=== PATIENT | female | born 1950 | race Caucasian/White ===

== ENCOUNTER 2017-03-31 16:41 | Inpatient (IN) | payer BC ==
[2017-03-31] MEDS ORDERED: Sodium Chloride 0.9% 5 ML Syringe FLUSH PRN (16:57)
[2017-03-31] MEDS ORDERED: diphenhydrAMINE 25 MG Cap PO PRN (19:38)
[2017-03-31] MEDS: Acetaminophen 500 MG Tab PO PRN (21:31)
[2017-04-01] MEDS ORDERED: Nicotine 7 MG/24 Hr Patch TRDERM PRN (06:00)
[2017-04-01 07:59] LABS: CHLORIDE,CL 95 mmol/L (98-115); SODIUM,NA 133 mmol/L (136-145)
--- NOTE | 2017-04-01 08:50 | PCM.PN ---
- General Info Date of Service: 04/01/17 Subjective Update: Ms. Parra reports that her elbow pain, swelling, and warmth is improved this morning. Has been attempting to offload any pressure on the right elbow. Denies fever, chills, appetite change, shortness of breath, wheezing, cough, abdominal pain, nausea, or other concerns. No nursing concerns. - Patient Data Vitals - Most Recent: Last Vital Signs Temp 36.7 C 04/01/17 06:51 Pulse 87 04/01/17 06:51 Resp 16 04/01/17 06:51 BP 161/97 H 04/01/17 06:51 Pulse Ox 90 L 04/01/17 06:51 Weight - Most Recent: 58.786 kg I&O - Last 24 Hours: Intake & Output 03/31/17 04/01/17 04/01/17 22:59 06:59 14:59 Intake Total 435 100 Output Total 350 400 Balance 85 -300 Lab Results Last 24 Hours: Laboratory Results - last 24 hr 04/01/17 04/01/17 Range/Units 07:25 07:25 WBC 6.5 (5.0-10.0) 10^3/uL RBC 3.80 (3.80-5.50) 10^6/uL Hgb 12.4 (12.0-16.0) g/dL Hct 38.2 (37.0-47.0) % MCV 100.7 H (82.0-92.0) fL MCH 32.7 H (27.0-31.0) pg MCHC 32.5 (32.0-36.0) g/dL RDW 12.0 (11.5-14.5) % Plt Count 447 H (150-300) 10^3/uL MPV 6.1 L (7.4-10.4) fL Neut % (Auto) 61.7 (50.0-70.0) % Lymph % (Auto) 21.2 (20.0-40.0) % [place] % (Auto) 14.4 H (2.0-8.0) % Eos % (Auto) 2.0 (1.0-3.0) % Baso % (Auto) 0.7 (0.0-1.0) % Neut # (Auto) 4.1 (2.5-7.0) 10^3/uL Lymph # (Auto) 1.4 (1.0-4.0) 10^3/uL [place] # (Auto) 0.9 H (0.1-0.8) 10^3/uL Eos # (Auto) 0.1 (0.1-0.3) 10^3/uL Baso # (Auto) 0.0 (0.0-0.1) 10^3/uL ESR 26 H (0-20) mm/hr Sodium 133 L (136-145) mmol/L Potassium 3.9 (3.3-5.3) mmol/L Chloride 95 L (98-115) mmol/L Carbon Dioxide 31.8 (21.0-32.0) mmol/L BUN 4 L (6-25) mg/dL Creatinine 0.31 L (0.51-1.17) mg/dL Est Cr Clr Drug Dosing 131.69 mL/min Estimated GFR (MDRD) > 60 mL/min Glucose 104 (70-110) mg/dL Calcium 8.8 (8.7-10.3) mg/dL Med Orders - Current: Current Medications Acetaminophen (Tylenol Extra Strength) 1,000 mg PO Q6H PRN PRN Reason: Pain Last Admin: 03/31/17 21:31 Dose: 1,000 mg Diphenhydramine HCl (Benadryl) 25 mg PO QID PRN PRN Reason: Allergies Vancomycin HCl 1 gm/ Sodium (Chloride) 250 mls @ 166.667 mls/hr IV Q12H [facility] Last Admin: 04/01/17 06:20 Dose: 166.667 mls/hr Ketorolac Tromethamine (Toradol) 30 mg IVPUSH Q8H PRN PRN Reason: Pain (moderate 4-6) Stop: 04/05/17 19:09 Moexipril HCl (Univasc) 15 mg PO DAILY [facility] Nicotine (Habitrol) 7 mg TRDERM DAILY PRN PRN Reason: Other Sodium Chloride (Syrex Flush) 5 ml FLUSH Q8HR PRN PRN Reason: Keep Vein Open Last Admin: 03/31/17 21:27 Dose: 5 ml Vancomycin HCl (Pharmacy To Dose - Vancomycin) 1 dose .XX ASDIRECTED [facility] Discontinued Medications Hydrochlorothiazide (Hydrochlorothiazide) 25 mg PO DAILY [facility] - Exam Physical Findings Comments:: GENERAL: Well-appearing adult female lying in hospital bed in no acute distress. HEENT: Normocephalic, atraumatic. Conjunctiva clear. Mucous membranes moist. NECK: Supple, no masses. CV: Regular rate and rhythm, no murmurs, rubs, or gallops. 2+ radial pulses. PULMONARY: Normal effort, clear to auscultation bilaterally, scattered faint wheezes, no rales or rhonchi. ABDOMEN: Positive bowel sounds, soft, nontender, nondistended. EXTREMITIES: No pedal edema. MUSCULOSKELETAL: R elbow with interval improvement in edema, redness, and warmth. Mild tenderness to palpation overlying effusion, but no bony tenderness to palpation. NEUROLOGICAL: No obvious deficits. PSYCHIATRIC: Alert, interactive, appropriate affect. - Problem List Review Problem List Initiated/Reviewed/Updated: Yes - My Orders Last 24 Hours: My Active Orders 03/31/17 16:44 Patient Status [ADT] Routine 03/31/17 16:57 Oxygen Therapy [RC] Up ad Deisy [RC] ASDIRECTED Vital Signs [RC] 0700,1500,2300 Sodium Chloride 0.9% [Syrex Flush] 5 ml FLUSH Q8HR PRN Blood Culture x2 Reflex Set [OM.PC] Stat Saline Lock Insert [OM.PC] Routine Resuscitation Status Routine 03/31/17 17:02 CULTURE BLOOD [BC] Stat CULTURE BLOOD [BC] Stat 03/31/17 17:15 Vancomycin Pharmacy to Dose [Pharmacy to Dose - Vancomycin] 1 dose .XX ASDIRECTED 03/31/17 18:30 Vancomycin 1 gm Sodium Chloride 0.9% [Normal Saline] 250 ml IV Q12H 03/31/17 19:08 Acetaminophen [Tylenol Extra Strength] 1,000 mg PO Q6H PRN 03/31/17 19:09 Ketorolac [Toradol] 30 mg IVPUSH Q8H PRN 03/31/17 19:38 diphenhydrAMINE [Benadryl] 25 mg PO QID PRN 03/31/17 Dinner Regular Diet [DIET] 04/01/17 06:00 Nicotine [Habitrol] 7 mg TRDERM DAILY PRN 04/01/17 08:48 FOLATE [REF] Routine VITAMIN B12 [REF] Routine 04/01/17 09:00 Moexipril [Univasc] 15 mg PO DAILY 04/02/17 05:11 BASIC METABOLIC PANEL,BMP [CHEM] AM CBC WITH AUTO DIFF [HEME] AM - Assessment Assessment:: 66yoF with admitted 03/31/17 for acute right elbow erythema consistent with olecranon septic arthritis and overlying cellulitis. # R elbow erythema: Interval improvement since aspiration yesterday and initiation of IV antibiotics. Crystals negative, so not consistent with gout. Gram stain and culture pending. Continue vancomycin for MRSA coverage. Continue ketorolac and acetaminophen as needed for pain control. Recheck CBC and ESR tomorrow. # HTN: BPs controlled. Home medications of HCTZ/moexepril. Holding HCTZ, as below. Monitor closely # Hyponatremia/hypochloremia: Improved since admission labs. Likely secondary to HCTZ, which was held today. Recheck BMP tomorrow. # Macrocytosis: Mild microcytosis with MCV 101. Ordered B12 and folate to further assess. # Tobacco dependence: Precontemplative stage of change and highly considering not restarting after leaving the hospital, which I highly encouraged. Nicotine patch prn. Hospitalization details: # FEN: No IVF. Electrolytes as above; recheck tomorrow. Regular diet. # PPX: Low risk for DVT=Ambulate and SCDs while in bed. # Code status: Full. # Emergency contact: . # Disposition: Continue inpatient status. Anticipate discharge in the next 1-2 days pending culture results and ability to transition to oral antibiotics.
[2017-04-01] MEDS: Acetaminophen 500 MG Tab PO PRN ×2 (08:57→18:06)
[2017-04-01] MEDS ORDERED: Hydrochlorothiazide 25 MG Tab PO SCH (09:00)
[2017-04-01] MEDS: Sodium Chloride 0.9% 100 ML IV SCH (18:05)
[2017-04-01] MEDS: Ketorolac 30 MG/ML SDV IVPUSH PRN (20:52)
[2017-04-02 07:24] LABS: CHLORIDE,CL 100 mmol/L (98-115); SODIUM,NA 137 mmol/L (136-145)
[2017-04-02] MEDS: Acetaminophen 500 MG Tab PO PRN ×2 (08:57→15:31)
--- NOTE | 2017-04-02 12:37 | PCM.PN ---
- General Info Date of Service: 04/02/17 Subjective Update: Ms. Parra reports that her elbow pain and swelling is stable this morning. Continuing to have some associated warmth. Has been trying to offload any pressure on the right elbow. Admits to some mild congestion that she usually take Mucinex for at home. Denies fever, chills, sore throat, shortness of breath, wheezing, cough, nausea , or other concerns. No nursing concerns. - Patient Data Vitals - Most Recent: Last Vital Signs Temp 36.5 C 04/02/17 06:11 Pulse 84 04/02/17 06:11 Resp 16 04/02/17 06:11 BP 149/94 H 04/02/17 08:58 Pulse Ox 92 L 04/02/17 06:25 Weight - Most Recent: 58.786 kg I&O - Last 24 Hours: Intake & Output 04/01/17 04/02/17 04/02/17 22:59 06:59 14:59 Intake Total 420 150 Output Total 300 250 Balance 120 -100 Lab Results Last 24 Hours: Laboratory Results - last 24 hr 04/01/17 04/01/17 04/02/17 Range/Units 07:25 07:25 06:45 WBC (5.0-10.0) 10^3/uL RBC (3.80-5.50) 10^6/uL Hgb (12.0-16.0) g/dL Hct (37.0-47.0) % MCV (82.0-92.0) fL MCH (27.0-31.0) pg MCHC (32.0-36.0) g/dL RDW (11.5-14.5) % Plt Count (150-300) 10^3/uL MPV (7.4-10.4) fL Neut % (Auto) (50.0-70.0) % Lymph % (Auto) (20.0-40.0) % [place] % (Auto) (2.0-8.0) % Eos % (Auto) (1.0-3.0) % Baso % (Auto) (0.0-1.0) % Neut # (Auto) (2.5-7.0) 10^3/uL Lymph # (Auto) (1.0-4.0) 10^3/uL [place] # (Auto) (0.1-0.8) 10^3/uL Eos # (Auto) (0.1-0.3) 10^3/uL Baso # (Auto) (0.0-0.1) 10^3/uL Sodium (136-145) mmol/L Potassium (3.3-5.3) mmol/L Chloride (98-115) mmol/L Carbon Dioxide (21.0-32.0) mmol/L BUN (6-25) mg/dL Creatinine (0.51-1.17) mg/dL Est Cr Clr Drug Dosing mL/min Estimated GFR (MDRD) mL/min Glucose (70-110) mg/dL Calcium (8.7-10.3) mg/dL Vitamin B12 182 (180-914) pg/mL Folate 14.0 ng/mL Vancomycin Trough 7.7 L (10-20) ug/mL 04/02/17 04/02/17 Range/Units 06:45 06:45 WBC 7.0 (5.0-10.0) 10^3/uL RBC 3.85 (3.80-5.50) 10^6/uL Hgb 12.4 (12.0-16.0) g/dL Hct 38.9 (37.0-47.0) % MCV 101.2 H (82.0-92.0) fL MCH 32.2 H (27.0-31.0) pg MCHC 31.9 L (32.0-36.0) g/dL RDW 11.8 (11.5-14.5) % Plt Count 440 H (150-300) 10^3/uL MPV 6.2 L (7.4-10.4) fL Neut % (Auto) 68.4 (50.0-70.0) % Lymph % (Auto) 16.0 L (20.0-40.0) % [place] % (Auto) 12.6 H (2.0-8.0) % Eos % (Auto) 2.6 (1.0-3.0) % Baso % (Auto) 0.4 (0.0-1.0) % Neut # (Auto) 4.8 (2.5-7.0) 10^3/uL Lymph # (Auto) 1.1 (1.0-4.0) 10^3/uL [place] # (Auto) 0.9 H (0.1-0.8) 10^3/uL Eos # (Auto) 0.2 (0.1-0.3) 10^3/uL Baso # (Auto) 0.0 (0.0-0.1) 10^3/uL Sodium 137 (136-145) mmol/L Potassium 3.7 (3.3-5.3) mmol/L Chloride 100 (98-115) mmol/L Carbon Dioxide 28.8 (21.0-32.0) mmol/L BUN 5 L (6-25) mg/dL Creatinine 0.27 L (0.51-1.17) mg/dL Est Cr Clr Drug Dosing 151.20 mL/min Estimated GFR (MDRD) > 60 mL/min Glucose 106 (70-110) mg/dL Calcium 8.8 (8.7-10.3) mg/dL Vitamin B12 (180-914) pg/mL Folate ng/mL Vancomycin Trough (10-20) ug/mL Med Orders - Current: Current Medications Acetaminophen (Tylenol Extra Strength) 1,000 mg PO Q6H PRN PRN Reason: Pain Last Admin: 04/02/17 08:57 Dose: 1,000 mg Diphenhydramine HCl (Benadryl) 25 mg PO QID PRN PRN Reason: Allergies Sodium Chloride (Normal Saline) 100 mls @ 20 mls/hr IV DAILY@1800 [facility] Last Admin: 04/01/17 18:05 Dose: 20 mls/hr Vancomycin HCl 1.25 gm/ Sodium (Chloride) 250 mls @ 166.667 mls/hr IV Q12H [facility] Last Admin: 04/02/17 09:10 Dose: 166.667 mls/hr Ketorolac Tromethamine (Toradol) 30 mg IVPUSH Q8H PRN PRN Reason: Pain (moderate 4-6) Stop: 04/05/17 19:09 Last Admin: 04/01/17 20:52 Dose: 30 mg Moexipril HCl (Univasc) 15 mg PO DAILY [facility] Last Admin: 04/02/17 08:58 Dose: 15 mg Nicotine (Habitrol) 7 mg TRDERM DAILY PRN PRN Reason: Other Sodium Chloride (Syrex Flush) 5 ml FLUSH Q8HR PRN PRN Reason: Keep Vein Open Last Admin: 03/31/17 21:27 Dose: 5 ml Vancomycin HCl (Pharmacy To Dose - Vancomycin) 1 dose .XX ASDIRECTED [facility] Discontinued Medications Hydrochlorothiazide (Hydrochlorothiazide) 25 mg PO DAILY [facility] Vancomycin HCl 1 gm/ Sodium (Chloride) 250 mls @ 166.667 mls/hr IV Q12H [facility] Last Admin: 04/01/17 06:20 Dose: 166.667 mls/hr Vancomycin HCl 1 gm/ Sodium (Chloride) 270 mls @ 180 mls/hr IV Q12H [facility] Last Admin: 04/02/17 08:10 Dose: Not Given - Exam Physical Findings Comments:: GENERAL: Well-appearing adult female lying in hospital bed in no acute distress. HEENT: Normocephalic, atraumatic. Conjunctiva clear. Mucous membranes moist. NECK: Supple, no masses. CV: Regular rate and rhythm, no murmurs, rubs, or gallops. 2+ radial pulses. PULMONARY: Normal effort, clear to auscultation bilaterally, scattered faint wheezes, no rales or rhonchi. EXTREMITIES: No pedal edema. MUSCULOSKELETAL: R elbow with ongoing edema, overlying redness, and mild warmth about stable from yesterday, but with interval improvement since admission. Mild tenderness to palpation overlying effusion, but no bony tenderness to palpation. NEUROLOGICAL: No obvious deficits. PSYCHIATRIC: Alert, interactive, appropriate affect. - Problem List Review Problem List Initiated/Reviewed/Updated: Yes - My Orders Last 24 Hours: My Active Orders 04/01/17 18:00 Sodium Chloride 0.9% [Normal Saline] 100 ml IV DAILY@1800 04/02/17 08:00 Vancomycin 1.25 gm Sodium Chloride 0.9% [Normal Saline] 250 ml IV Q12H - Assessment Assessment:: 66yoF with admitted 03/31/17 for acute right elbow erythema consistent with olecranon septic arthritis and overlying cellulitis. # R olecranon septic arthritis/cellulitis: Initial improvement following aspiration and initiation of IV antibiotics, with stability in the last 24 hours , but with ongoing erythema. Crystals negative, so not consistent with gout. Gram stain and culture with Staph. aureus with sensitivities pending. Continue vancomycin for MRSA coverage with plan to change to oral regimen based on sensitivites tomorrow. Continue ketorolac and acetaminophen as needed for pain control. Consider repeat aspiration tomorrow if palpable fluid still present. # HTN: BPs elevated since stopping HCTZ due to hyponatremia. Increase moexepril to 30mg daily. Plan for outpatient follow-up of BP and electrolytes while awaiting full effect of increased dose. # Hyponatremia/hypochloremia: Resolved since stopping HCTZ. # B12 deficiency: Mild microcytosis with MCV 101. Folate normal. B12 mildly low , so will start oral replacement. # Tobacco dependence: Precontemplative stage of change and highly considering not restarting after leaving the hospital, which I highly encouraged. Nicotine patch prn. Hospitalization details: # FEN: No IVF. Electrolytes normal. Regular diet. # PPX: Low risk for DVT=Ambulate and SCDs while in bed. # Code status: Full. # Emergency contact: . # Disposition: Continue inpatient status. Anticipate discharge tomorrow pending culture results and ability to transition to oral antibiotics.
[2017-04-02] MEDS ORDERED: guaiFENesin 600 MG Tab.ER PO PRN (19:14)
[2017-04-02] MEDS: Ketorolac 30 MG/ML SDV IVPUSH PRN (20:11)
[2017-04-02] MEDS: Sodium Chloride 0.9% 100 ML IV SCH (20:19)
[2017-04-03 06:24] VITALS: BP 163/87
[2017-04-03] MEDS: Sodium Chloride 0.9% 100 ML IV SCH (08:21)
[2017-04-03] MEDS ORDERED: Cyanocobalamin (Vitamin B12) 500 MCG Tab PO SCH (09:00)
--- NOTE | 2017-04-04 00:06 | PCM.DCSUM1 ---
Discharge Summary - Hospital Course Free Text/Narrative:: 66yoF with hx of HTN admitted 03/31/17 from clinic for acute right elbow erythema consistent with olecranon septic arthritis and overlying cellulitis. She had clinical improvement with IV antibiotics and culture grew gonzalez-sensitive Staph. aureus allowing for appropriate switch to oral antibiotic and discharge home. She will follow-up in 4 days. Follow-up items underlined below in problem- based assessment/plan: # R olecranon septic arthritis/cellulitis: Onset about 2 days prior to presentation and exam with extensive erythema for which aspiration of 15cc was performed and she was admitted for IV antibiotics given the extensive involvement. Improvement with IV vancomycin was noted. Crystals negative, so not consistent with gout. Gram stain and culture with gonzalez-sensitive Staph. aureus for which a 14-day course of amoxicillin was prescribed at discharge. Repeat aspiration was also performed on day of discharge to further assist with ongoing improvement and resolution; may consider again if recurrent. # HTN: Previously on HCTZ-moexepril. HCTZ stopped due to hyponatremia and BPs became elevated so increased moexepril to 30mg daily. Plan for outpatient follow -up of BP and electrolytes while awaiting full effect of increased dose. # Hyponatremia/hypochloremia: Initial labs with sodium 122 and prior history noting chronic history of hyponatremia. HCTZ stopped and sodium normalized. # B12 deficiency: Initial labs with mild microcytosis with MCV 101. Folate normal. B12 mildly low, so started oral replacement. # Tobacco dependence: Precontemplative stage of change and highly considering not restarting after leaving the hospital, which I highly encouraged. - Discharge Data Discharge Date: 04/03/17 Discharge Disposition: Home, Self-Care 01 Condition: Good - Patient Instructions Diet: Usual Diet as Tolerated Activity: Apply Ice, As Tolerated Showering/Bathing: May Shower Wound/Incision Care: Keep Operative Site/Wound Site Clean and Dry Notify Provider of: Fever, Increased Pain, Swelling and Redness, Drainage - Discharge Plan Prescriptions/Med Rec: Amoxicillin 500 mg PO TID 14 Days #42 capsule Cyanocobalamin (Vitamin B12) [Vitamin B12] 500 mcg PO DAILY #30 tablet Moexipril [Univasc] 30 mg PO DAILY #60 tablet Home Medications: Home Meds diphenhydrAMINE [Benadryl] 25 mg PO QID PRN 03/31/17 [History] Amoxicillin 500 mg PO TID 14 Days #42 capsule 04/03/17 [Rx] Cyanocobalamin (Vitamin B12) [Vitamin B12] 500 mcg PO DAILY #30 tablet 04/03/17 [Rx] Moexipril [Univasc] 30 mg PO DAILY #60 tablet 04/03/17 [Rx] Referrals: Michelle Hooks MD [Physician] - 04/07/17 ([facility]) - General Info Subjective Update: Ms. Parra reports that her elbow pain and swelling is stable this morning. She has had improved warmth and redness Has been trying to offload any pressure on the right elbow. Denies fever, chills, sore throat, shortness of breath, wheezing, cough, nausea , or other concerns. No nursing concerns. - Patient Data Vitals - Most Recent: Last Vital Signs Temp 36.8 C 04/03/17 06:23 Pulse 93 04/03/17 06:23 Resp 20 04/03/17 06:23 BP 163/87 H 04/03/17 08:27 Pulse Ox 95 04/03/17 08:30 Weight - Most Recent: 58.786 kg I&O - Last 24 hours: Intake & Output 04/03/17 04/03/17 04/04/17 14:59 22:59 06:59 Intake Total 305 Output Total 10 Balance 295 Med Orders - Current: Current Medications Discontinued Medications Acetaminophen (Tylenol Extra Strength) 1,000 mg PO Q6H PRN PRN Reason: Pain Last Admin: 04/02/17 15:31 Dose: 1,000 mg Cyanocobalamin (Vitamin B12) 500 mcg PO DAILY [facility] Last Admin: 04/03/17 08:27 Dose: 500 mcg Diphenhydramine HCl (Benadryl) 25 mg PO QID PRN PRN Reason: Allergies Guaifenesin (Mucinex) 600 mg PO TID PRN PRN Reason: Congestion Last Admin: 04/02/17 20:09 Dose: 600 mg Hydrochlorothiazide (Hydrochlorothiazide) 25 mg PO DAILY [facility] Vancomycin HCl 1 gm/ Sodium (Chloride) 250 mls @ 166.667 mls/hr IV Q12H [facility] Last Admin: 04/01/17 06:20 Dose: 166.667 mls/hr Sodium Chloride (Normal Saline) 100 mls @ 20 mls/hr IV DAILY@1800 [facility] Last Admin: 04/03/17 08:21 Dose: 20 mls/hr Vancomycin HCl 1 gm/ Sodium (Chloride) 270 mls @ 180 mls/hr IV Q12H [facility] Last Admin: 04/02/17 08:10 Dose: Not Given Vancomycin HCl 1.25 gm/ Sodium (Chloride) 250 mls @ 166.667 mls/hr IV Q12H [facility] Last Admin: 04/03/17 08:18 Dose: 166.667 mls/hr Ketorolac Tromethamine (Toradol) 30 mg IVPUSH Q8H PRN PRN Reason: Pain (moderate 4-6) Stop: 04/05/17 19:09 Last Admin: 04/02/17 20:11 Dose: 30 mg Moexipril HCl (Univasc) 15 mg PO DAILY [facility] Last Admin: 04/02/17 08:58 Dose: 15 mg Moexipril HCl (Univasc) 30 mg PO DAILY [facility] Last Admin: 04/03/17 08:27 Dose: 30 mg Nicotine (Habitrol) 7 mg TRDERM DAILY PRN PRN Reason: Other Sodium Chloride (Syrex Flush) 5 ml FLUSH Q8HR PRN PRN Reason: Keep Vein Open Last Admin: 03/31/17 21:27 Dose: 5 ml Vancomycin HCl (Pharmacy To Dose - Vancomycin) 1 dose .XX ASDIRECTED [facility] - Exam Physical Findings Comments:: GENERAL: Well-appearing adult female sitting on hospital bed in no acute distress. HEENT: Normocephalic, atraumatic. Conjunctiva clear. Mucous membranes moist. NECK: Supple, no masses. CV: Regular rate and rhythm, no murmurs, rubs, or gallops. 2+ radial pulses. PULMONARY: Normal effort, clear to auscultation bilaterally, scattered faint wheezes, no rales or rhonchi. EXTREMITIES: No pedal edema. MUSCULOSKELETAL: R elbow with ongoing edema and overlying redness, but without warmth slightly improved from yesterday and with excellent interval improvement since admission. Mild tenderness to palpation overlying effusion, but no bony tenderness to palpation. NEUROLOGICAL: No obvious deficits. PSYCHIATRIC: Alert, interactive, appropriate affect. *Q Meaningful Use (DIS) - VTE *Q VTE Criteria *Q: - Stroke *Q Stroke Criteria *Q: - AMI *Q AMI Criteria *Q:
--- NOTE | 2017-04-06 23:28 | PCM.PRNOTE ---
- Free Text/Narrative Note: PROCEDURE PERFORMED: Right olecranon bursa aspiration INDICATIONS FOR PROCEDURE: Right olecranon bursitis CONSENT: Informed consent was obtained prior to the procedure after discussion of the risks (infection, bleeding, pain), benefits and alternatives and expected outcomes were discussed with the patient. Verbal consent given and consent form signed. PROCEDURAL PAUSE: Completed DESCRIPTION OF PROCEDURE: The patient was placed in a right lateral position with elbow resting on side. Area was cleansed and prepped using chlorhexidine swab x3 and sterile field created. A 27-gauge needle was used to inject 2cc(s) of 1% lidocaine into the area overlying the olecranon bursa. Then, an 18-gauge needle was directed into the area and 10cc of denisa-colored fluid aspirated. Area was cleansed and dressed with a bandage and pressure dressing. No complications. EBL <1mL.
== END 2017-04-03 13:50 | disposition home or self-care (01) | DRG 344 ==
LOC: KA.MS 16:44
PROVIDERS: ADMIT Family Medicine; ATTEND Family Medicine
PROC: 0R9L3ZX Drainage of Right Elbow Joint, Percutaneous Approach, Diagnostic (ICD-10-PCS; principal; 2017-03-31)
DX: M00.021 Staphylococcal arthritis, right elbow (principal); B95.62 Methicillin resistant Staphylococcus aureus infection as the cause of diseases classified elsewhere; L03.113 Cellulitis of right upper limb; I10 Essential (primary) hypertension; E87.1 Hypo-osmolality and hyponatremia; E87.8 Other disorders of electrolyte and fluid balance, not elsewhere classified; E53.8 Deficiency of other specified B group vitamins; F17.200 Nicotine dependence, unspecified, uncomplicated; R09.81 Nasal congestion; D75.89 Other specified diseases of blood and blood-forming organs; Z79.899 Other long term (current) drug therapy
CPT/HCPCS: 36415; 80048; 80202; 82607; 82746; 85025; 85651; 87040; A9270-GY; J1885; J3370; J7050

== ENCOUNTER 2018-11-04 11:20 | Inpatient (IN) | payer MEDICARE, OTHER ==
[2018-11-04] MEDS ORDERED: Sodium Chloride 0.9% 1,000 ML IV SCH (12:30)
--- NOTE | 2018-11-04 13:07 | CR ---
[id number] RAD/RAD Chest PA And Lateral EXAM: FRONTAL AND LATERAL CHEST INDICATION: Fever and cough. COMPARISON: None. DISCUSSION: There is a moderate nonspecific right greater than left base opacities obscuring the right and left heart borders. Mild bibasilar infiltrates and/or atelectasis. Chest CT with contrast is suggested for further characterization of these findings. Hyperaeration is compatible chronic obstructive pulmonary disease. Mild to moderate convex right lower thoracic curvature. Chronic left rib fractures. Prior vertebroplasty at the thoracolumbar junction. Heart size is obscured. There is borderline central vascular congestion. IMPRESSION: 1. Left base opacities may relate in part to infiltrates and atelectasis, but chest CT with contrast is suggested to further evaluate for other pathology in the right lung base. 2. Borderline central vascular congestion. Russ Guzman MD 11/04/18 [id number] Thank you for allowing us to participate in the care of your patient.
[2018-11-04] MEDS: Sodium Chloride 0.9% 1,000 ML IV ONE ×2 (13:15→14:33)
[2018-11-04 13:22] LABS: ANION GAP 13.8 mmol/L (5-15); SODIUM,NA 129 mmol/L (136-145)
[2018-11-04 13:28] LABS: CHLORIDE,CL 88 mmol/L (98-115)
[2018-11-04] MEDS ORDERED: Sodium Chloride 0.9% 1,000 ML IV ONE (13:49)
[2018-11-04] MEDS ORDERED: Iopamidol 755 Mg/ML 75 ML Bottle IVPUSH ONE (16:27)
[2018-11-04] MEDS ORDERED: Sodium Chloride 0.9% 50 ML IV ONE (16:27)
[2018-11-04] MEDS ORDERED: Albuterol/Ipratropium 3.0-0.5 MG/3 ML Neb Soln NEB PRN (16:50)
[2018-11-04] MEDS ORDERED: Dextrose 5% in Water with KCl 1,000 ML IV SCH (17:30)
[2018-11-04] MEDS: cefTRIAXone 2 GM Vial IVPUSH SCH (17:36)
[2018-11-04] MEDS: Sodium Chloride 0.9% 10 ML Syringe FLUSH PRN (17:37)
[2018-11-04] MEDS ORDERED: Azithromycin 500 MG in Sodium Chloride 0.9% 250 ML IV SCH (18:00)
--- NOTE | 2018-11-04 18:04 | CT ---
[id number] CT/CT Chest W IV EXAM: CT Chest W IV CLINICAL DATA: COUGH, FEVER. COMPARISON: Radiograph from today. FINDINGS: LUNGS: Parenchymal emphysema, apical predominant with bulla formation in the right apex. Scattered pleural/parenchymal scarring. No suspicious nodularity. Negative for pneumonia, effusion, edema, or pneumothorax. HEART AND GREAT VESSELS: Heart is normal in size. No pericardial effusion. Thoracic aorta atherosclerosis. No aneurysm. Mild central vascular congestion, nonspecific in etiology. MEDIASTINUM AND LYMPHATICS: No mediastinal or hilar lymphadenopathy. UPPER ABDOMINAL ORGANS: Anterior diaphragmatic hernia containing a loop of colon, accounting for opacity anteriorly on lateral chest radiograph. Unremarkable. BONES: Advanced thoracic dextroconvexity. Chronic bilateral rib fractures. IMPRESSION: Negative for pneumonia or other acute findings in the chest. Multiple chronic findings are described above. Maurizio Garner MD 11/04/18 [id number] Thank you for allowing us to participate in the care of your patient.
[2018-11-05] MEDS: NS + KCl 20mEq/L 1,000 ML IV SCH ×3 (00:43→18:54)
[2018-11-05] MEDS: Acetaminophen 325 MG Tab PO PRN (00:58)
[2018-11-05] MEDS: Melatonin 3 MG Tab PO PRN ×2 (01:11→21:54)
[2018-11-05 09:23] LABS: ANION GAP 10.5 mmol/L (5-15); CHLORIDE,CL 98 mmol/L (98-115); SODIUM,NA 139 mmol/L (136-145)
[2018-11-05] MEDS ORDERED: Moexipril 7.5 MG Tab PO SCH (11:15)
[2018-11-05] MEDS ORDERED: Potassium Bicarbonate/Potassium Chloride 25 MEQ Tab.Eff PO SCH ×2 (11:15→16:00)
--- NOTE | 2018-11-05 11:19 | PCM.PN ---
- General Info Date of Service: 11/05/18 Functional Status: Reports: Pain Controlled, Tolerating Diet, Urinating. Denies : Ambulating, New Symptoms - Review of Systems General: Reports: Fatigue, Night Sweats. Denies: Fever, Malaise, Chills HEENT: Reports: No Symptoms Pulmonary: Reports: Shortness of Breath, Cough. Denies: Wheezing Cardiovascular: Reports: Edema (Slight edema right lower extremity ) Gastrointestinal: Reports: No Symptoms Genitourinary: Denies: Dysuria Musculoskeletal: Reports: No Symptoms Skin: Reports: Dryness Neurological: Denies: Confusion Psychiatric: Denies: Confusion, Agitation - Patient Data Vitals - Most Recent: Last Vital Signs Temp 98.3 F 11/05/18 07:00 Pulse 91 11/05/18 07:00 Resp 20 11/05/18 07:00 BP 126/79 11/05/18 07:00 Pulse Ox 92 L 11/05/18 07:00 Weight - Most Recent: 126 lb 5 oz I&O - Last 24 Hours: Intake & Output 11/04/18 11/05/18 11/05/18 22:59 06:59 14:59 Intake Total 1586 1387 Output Total 300 400 Balance 1286 987 Lab Results Last 24 Hours: Laboratory Results - last 24 hr 11/04/18 11/04/18 11/04/18 Range/Units 12:30 12:30 12:30 WBC 22.97 H (5.00-10.00) 10^3/uL RBC 3.91 (3.80-5.50) 10^6/uL Hgb 13.6 (12.0-16.0) g/dL Hct 38.0 (37.0-47.0) % MCV 97.2 H D (82.0-92.0) fL MCH 34.8 H (27.0-31.0) pg MCHC 35.8 (32.0-36.0) g/dL RDW 12.9 (11.5-14.5) % Plt Count 331 (150-400) 10^3/uL MPV 9.0 (7.4-10.4) fL Immature Gran % (Auto) 1.0 (0.0-5.0) % Neut % (Auto) 87.0 H (50.0-70.0) % Lymph % (Auto) 4.1 L (20.0-40.0) % [place] % (Auto) 7.8 (2.0-8.0) % Eos % (Auto) 0.0 L (1.0-3.0) % Baso % (Auto) 0.1 (0.0-1.0) % Immature Gran # (Auto) 0.22 (0.00-0.50) 10^3/uL Neut # (Auto) 19.98 H (2.50-7.00) 10^3/uL Lymph # (Auto) 0.94 L (1.00-4.00) 10^3/uL [place] # (Auto) 1.80 H (0.10-0.80) 10^3/uL Eos # (Auto) 0.01 L (0.10-0.30) 10^3/uL Baso # (Auto) 0.02 (0.00-0.10) 10^3/uL Sodium 129 L (136-145) mmol/L Potassium 3.1 L (3.3-5.3) mmol/L Chloride 88 L* D (98-115) mmol/L Carbon Dioxide 30.3 (21.0-32.0) mmol/L Anion Gap 13.8 (5-15) mmol/L BUN 20 (6-25) mg/dL Creatinine 0.57 (0.51-1.17) mg/dL Est Cr Clr Drug Dosing TNP Estimated GFR (MDRD) > 60 mL/min Glucose 114 H (75 - 99) mg/dL Lactic Acid (0.4-2.0) mmol/L Calcium 8.4 L (8.7-10.3) mg/dL Total Bilirubin 0.7 (0.2-1.0) mg/dL AST 57 H (15-37) U/L ALT 63 (12-78) U/L Alkaline Phosphatase 201 H (46-116) IU/L Troponin I 0.07 (0.00-0.070) ng/mL C-Reactive Protein 29.6 H (0.0-0.9) mg/dL B-Natriuretic Peptide 159 H (0-100) pg/mL Total Protein 6.7 (6.4-8.2) g/dL Albumin 2.17 L (3.00-4.80) g/dL TSH, Ultra Sensitive 1.030 (0.340-4.820) uIU/mL Specimen Type Urine Color (YELLOW) Urine Appearance (CLEAR) Urine pH (5.0-9.0) Ur Specific [place] (1.005-1.030) Urine Protein (NEGATIVE) mg/dL Urine Glucose (UA) (NEGATIVE) mg/dL Urine Ketones (NEGATIVE) mg/dL Urine Occult Blood (NEGATIVE) Urine Nitrite (NEGATIVE) Urine Bilirubin (NEGATIVE) Urine Urobilinogen (0.2-1.0) E.U./dL Ur Leukocyte Esterase (NEGATIVE) Urine RBC (0-5) /HPF Urine WBC (0-5) /HPF Ur Epithelial Cells /LPF Amorphous Sediment (0/HPF) /HPF Urine Bacteria (NONE TO FEW) /HPF 11/04/18 11/04/18 11/05/18 Range/Units 12:30 15:40 08:55 WBC 21.34 H (5.00-10.00) 10^3/uL RBC 3.65 L (3.80-5.50) 10^6/uL Hgb 12.6 (12.0-16.0) g/dL Hct 36.0 L (37.0-47.0) % MCV 98.6 H (82.0-92.0) fL MCH 34.5 H (27.0-31.0) pg MCHC 35.0 (32.0-36.0) g/dL RDW 13.2 (11.5-14.5) % Plt Count 365 (150-400) 10^3/uL MPV 9.0 (7.4-10.4) fL Immature Gran % (Auto) 0.7 (0.0-5.0) % Neut % (Auto) 87.8 H (50.0-70.0) % Lymph % (Auto) 4.2 L (20.0-40.0) % [place] % (Auto) 7.3 (2.0-8.0) % Eos % (Auto) 0.0 L (1.0-3.0) % Baso % (Auto) 0.0 (0.0-1.0) % Immature Gran # (Auto) 0.15 (0.00-0.50) 10^3/uL Neut # (Auto) 18.71 H (2.50-7.00) 10^3/uL Lymph # (Auto) 0.90 L (1.00-4.00) 10^3/uL [place] # (Auto) 1.56 H (0.10-0.80) 10^3/uL Eos # (Auto) 0.01 L (0.10-0.30) 10^3/uL Baso # (Auto) 0.01 (0.00-0.10) 10^3/uL Sodium (136-145) mmol/L Potassium (3.3-5.3) mmol/L Chloride (98-115) mmol/L Carbon Dioxide (21.0-32.0) mmol/L Anion Gap (5-15) mmol/L BUN (6-25) mg/dL Creatinine (0.51-1.17) mg/dL Est Cr Clr Drug Dosing Estimated GFR (MDRD) mL/min Glucose (75 - 99) mg/dL Lactic Acid 1.4 (0.4-2.0) mmol/L Calcium (8.7-10.3) mg/dL Total Bilirubin (0.2-1.0) mg/dL AST (15-37) U/L ALT (12-78) U/L Alkaline Phosphatase (46-116) IU/L Troponin I (0.00-0.070) ng/mL C-Reactive Protein (0.0-0.9) mg/dL B-Natriuretic Peptide (0-100) pg/mL Total Protein (6.4-8.2) g/dL Albumin (3.00-4.80) g/dL TSH, Ultra Sensitive (0.340-4.820) uIU/mL Specimen Type . Urine Color Light yellow (YELLOW) Urine Appearance Clear (CLEAR) Urine pH 5.5 (5.0-9.0) Ur Specific [place] 1.010 (1.005-1.030) Urine Protein 30 H (NEGATIVE) mg/dL Urine Glucose (UA) Negative (NEGATIVE) mg/dL Urine Ketones Negative (NEGATIVE) mg/dL Urine Occult Blood Trace-intact H (NEGATIVE) Urine Nitrite Negative (NEGATIVE) Urine Bilirubin Negative (NEGATIVE) Urine Urobilinogen 0.2 (0.2-1.0) E.U./dL Ur Leukocyte Esterase Small H (NEGATIVE) Urine RBC 5-10 H (0-5) /HPF Urine WBC >100 H (0-5) /HPF Ur Epithelial Cells Many H /LPF Amorphous Sediment Few (0/HPF) /HPF Urine Bacteria Many H (NONE TO FEW) /HPF 11/05/18 Range/Units 08:55 WBC (5.00-10.00) 10^3/uL RBC (3.80-5.50) 10^6/uL Hgb (12.0-16.0) g/dL Hct (37.0-47.0) % MCV (82.0-92.0) fL MCH (27.0-31.0) pg MCHC (32.0-36.0) g/dL RDW (11.5-14.5) % Plt Count (150-400) 10^3/uL MPV (7.4-10.4) fL Immature Gran % (Auto) (0.0-5.0) % Neut % (Auto) (50.0-70.0) % Lymph % (Auto) (20.0-40.0) % [place] % (Auto) (2.0-8.0) % Eos % (Auto) (1.0-3.0) % Baso % (Auto) (0.0-1.0) % Immature Gran # (Auto) (0.00-0.50) 10^3/uL Neut # (Auto) (2.50-7.00) 10^3/uL Lymph # (Auto) (1.00-4.00) 10^3/uL [place] # (Auto) (0.10-0.80) 10^3/uL Eos # (Auto) (0.10-0.30) 10^3/uL Baso # (Auto) (0.00-0.10) 10^3/uL Sodium 139 D (136-145) mmol/L Potassium 2.9 L (3.3-5.3) mmol/L Chloride 98 (98-115) mmol/L Carbon Dioxide 33.4 H (21.0-32.0) mmol/L Anion Gap 10.5 (5-15) mmol/L BUN 8 (6-25) mg/dL Creatinine 0.39 L (0.51-1.17) mg/dL Est Cr Clr Drug Dosing 101.92 Estimated GFR (MDRD) > 60 mL/min Glucose 124 H (75 - 99) mg/dL Lactic Acid (0.4-2.0) mmol/L Calcium 8.3 L (8.7-10.3) mg/dL Total Bilirubin (0.2-1.0) mg/dL AST (15-37) U/L ALT (12-78) U/L Alkaline Phosphatase (46-116) IU/L Troponin I (0.00-0.070) ng/mL C-Reactive Protein (0.0-0.9) mg/dL B-Natriuretic Peptide (0-100) pg/mL Total Protein (6.4-8.2) g/dL Albumin (3.00-4.80) g/dL TSH, Ultra Sensitive (0.340-4.820) uIU/mL Specimen Type Urine Color (YELLOW) Urine Appearance (CLEAR) Urine pH (5.0-9.0) Ur Specific [place] (1.005-1.030) Urine Protein (NEGATIVE) mg/dL Urine Glucose (UA) (NEGATIVE) mg/dL Urine Ketones (NEGATIVE) mg/dL Urine Occult Blood (NEGATIVE) Urine Nitrite (NEGATIVE) Urine Bilirubin (NEGATIVE) Urine Urobilinogen (0.2-1.0) E.U./dL Ur Leukocyte Esterase (NEGATIVE) Urine RBC (0-5) /HPF Urine WBC (0-5) /HPF Ur Epithelial Cells /LPF Amorphous Sediment (0/HPF) /HPF Urine Bacteria (NONE TO FEW) /HPF Kailash Results Last 24 Hours: Microbiology 11/04/18 15:40 Urine Culture - Final Urine, Clean Catch 11/04/18 12:30 Anaerobic Blood Culture - Final Blood - Venous Med Orders - Current: Current Medications Acetaminophen (Tylenol) 650 mg PO Q4H PRN PRN Reason: Pain Last Admin: 11/05/18 00:58 Dose: 650 mg Albuterol/Ipratropium (Duoneb 3.0-0.5 Mg/3 Ml) 3 ml NEB Q4HRRT PRN PRN Reason: Shortness of Breath Last Admin: 11/05/18 10:32 Dose: 3 ml Ceftriaxone Sodium (Rocephin) 2 gm IVPUSH Q24H [facility] Last Admin: 11/04/18 17:36 Dose: 2 gm Potassium Chloride/Sodium Chloride (Normal Saline With 20 Meq Kcl) 1,000 mls @ 125 mls/hr IV ASDIRECTED [facility] Last Admin: 11/05/18 09:57 Dose: 125 mls/hr Melatonin (Melatonin) 3 mg PO BEDTIME PRN PRN Reason: Insomnia Last Admin: 11/05/18 01:11 Dose: 3 mg Sodium Chloride (Saline Flush) 10 ml FLUSH Q8HR PRN PRN Reason: keep vein open Last Admin: 11/04/18 17:37 Dose: 10 ml Discontinued Medications Sodium Chloride (Normal Saline) 1,000 mls @ 999 mls/hr IV ONETIME ONE Stop: 11/04/18 13:21 Last Admin: 11/04/18 14:33 Dose: Not Given Sodium Chloride (Normal Saline) 1,000 mls @ 125 mls/hr IV ASDIRECTED [facility] Last Admin: 11/04/18 14:23 Dose: 125 mls/hr Sodium Chloride (Normal Saline) 1,000 mls @ 999 mls/hr IV ONETIME ONE Stop: 11/04/18 14:49 Last Admin: 11/04/18 14:23 Dose: 999 mls/hr Sodium Chloride (Normal Saline) 50 mls @ 2.5 mls/sec IV ASDIRECTED ONE Stop: 11/04/18 16:28 Last Admin: 11/04/18 19:58 Dose: Not Given Azithromycin 500 mg/ Sodium (Chloride) 250 mls @ 250 mls/hr IV Q24H [facility] Last Admin: 11/04/18 18:05 Dose: 250 mls/hr Potassium Chloride/Dextrose (D5w With 20 Meq Kcl) 1,000 mls @ 125 mls/hr IV ASDIRECTED [facility] Iopamidol (Isovue-370 (76%)) 75 ml IVPUSH ONETIME ONE Stop: 11/04/18 16:28 Last Admin: 11/04/18 19:58 Dose: Not Given - Exam Quality Assessment: Supplemental Oxygen General: Alert, Oriented, Cooperative, No Acute Distress Neck: No JVD Lungs: Decreased Breath Sounds, Other (Tripod stance, purse lipped breathing) Cardiovascular: Regular Rate, Regular Rhythm GI/Abdominal Exam: Soft (Female) Exam: Deferred Back Exam: No: CVA Tenderness (L), CVA Tenderness (R) Extremities: Pedal Edema (Right lower extremity 1+) Peripheral Pulses: 2+: Radial (L), Radial (R) Skin: Dry Neurological: Normal Speech, Normal Tone, Sensation Intact Psy/Mental Status: Alert, Normal Affect, Normal Mood - Problem List Review Problem List Initiated/Reviewed/Updated: Yes - My Orders Last 24 Hours: My Active Orders 11/05/18 00:45 NS + KCl 20mEq/L [Normal Saline with 20 mEq KCl] 1,000 ml IV ASDIRECTED 11/05/18 00:46 Acetaminophen [Tylenol] 650 mg PO Q4H PRN 11/05/18 01:01 Melatonin 3 mg PO BEDTIME PRN - Plan Plan:: Brief history, (see H&P for full details) Lalitha is a 68-year-old who was admitted by Dr. Hooks from [facility]. She had presented with a five-day history of increasing weakness, fatigue, developing cough, dizziness, feverish feeling, and chills, SOB along with symptoms suggestive of a UTI she did have a strong urine odor. Review of Dr. Ángela altamirano's examination patient had positive signs of dehydration. She has history of hyponatremia, tobacco dependency, EtOH use along with hypertension. Although she has no formal diagnosis/staging of COPD she has been taking increasing dosages of albuterol/GISSELLE 4-5 times daily--up from 1-2 times daily. No No baseline formal spirometry on file. She was initially started on antibiotics as initial chest x-ray reading showed possibility of CAP however subsequent chest CT ruled out pulmonary pathology so antibiotics were descalated Pertinent workup Chest x-ray; left basal pace that he likely atelectasis with borderline central vascular congestion Chest CT; no acute findings Anaerobic BC positive for gram-negative rods UC, gram-negative rods, oxidase negative UA, [facility], leukocyte esterase, hematuria, cloudy in appearance Primary hospital problem Bacteremia,/UTI Hypokalemia Neutrophilia/Monocytosis Emphysema/COPD, clinical, non-staged Protein malnutrition Chronic hospital problems Hypertension, EtOH use disorder Tobacco dependency Chronic bilateral rib fractures Hx, vertebral plasty Disposition/plan --change to inpatient --continue Rocephin, --BC surveillance, --Assess baseline spirometry, --oxygen support if needed TKS 90-93% --baseline ABG today --Add MVI --Protein supplementation --assess pneumococcal/influenza vaccination status, --respiratory therapist consultation for tobacco cessation, --pharmacy consultation to review medications/Rx plan as I would like to start her on LABA/LAMA i.e Anoro Ellipta --Add DVT prophylaxis
[2018-11-05 11:50] LABS: BASE EXCESS ARTERIAL 5 mmol/L (-2-3); BICARBONATE,ARTERIAL 29.2 mmol/L (22-26); O2 DELIVERY DEVICE ROOM AIR; O2 SATURATION ARTERIAL 87 % (95-98); PCO2 ARTERIAL 45 mmHG (35-45); PO2 ARTERIAL 53 mmHG (80-105)
[2018-11-05] MEDS: Cyanocobalamin (Vitamin B12) 500 MCG Tab PO SCH (11:58)
[2018-11-05] MEDS: Multivitamins with Minerals/Iron/Folic Acid/Lycopene Tab PO SCH (11:58)
[2018-11-05] MEDS: Enoxaparin 40 MG/0.4 ML Syringe SUBCUT SCH (11:58)
[2018-11-05] MEDS ORDERED: Potassium Bicarbonate/Potassium Chloride 25 MEQ Tab.Eff PO ONE ×2 (12:00→16:00)
[2018-11-05] MEDS: cefTRIAXone 2 GM Vial IVPUSH SCH (16:26)
[2018-11-05] MEDS: Sodium Chloride 0.9% 10 ML Syringe FLUSH PRN (16:31)
[2018-11-05] MEDS ORDERED: Potassium Bicarbonate 25 MEQ Tab.EFF PO ONE (16:45)
[2018-11-06] MEDS: NS + KCl 20mEq/L 1,000 ML IV SCH (02:57)
[2018-11-06 07:53] LABS: ANION GAP 9.9 mmol/L (5-15); CHLORIDE,CL 101 mmol/L (98-115); SODIUM,NA 140 mmol/L (136-145)
[2018-11-06] MEDS: Cyanocobalamin (Vitamin B12) 500 MCG Tab PO SCH (08:28)
[2018-11-06] MEDS: Multivitamins with Minerals/Iron/Folic Acid/Lycopene Tab PO SCH (08:28)
[2018-11-06] MEDS ORDERED: MOEXIPRIL 15 MG PO SCH (09:00)
--- NOTE | 2018-11-06 11:06 | PCM.PN ---
- General Info Date of Service: 11/06/18 Functional Status: Reports: Pain Controlled, Urinating, New Symptoms (Weight gain however no fluid overload), Incentive Spirometry. Denies: Ambulating - Review of Systems General: Reports: Weakness. Denies: Fever HEENT: Reports: No Symptoms Pulmonary: Reports: Shortness of Breath, Cough. Denies: Sputum, Wheezing Cardiovascular: Reports: Dyspnea on Exertion, Edema (1+ right sided pitting edema) Gastrointestinal: Reports: No Symptoms Genitourinary: Reports: Frequency. Denies: Dysuria Musculoskeletal: Reports: No Symptoms Skin: Reports: Dryness Neurological: Denies: Confusion Psychiatric: Denies: Agitation - Patient Data Vitals - Most Recent: Last Vital Signs Temp 98.5 F 11/06/18 07:00 Pulse 94 11/06/18 07:00 Resp 20 11/06/18 07:00 BP 112/62 11/06/18 07:00 Pulse Ox 98 11/06/18 07:00 Weight - Most Recent: 135 lb 9.6 oz I&O - Last 24 Hours: Intake & Output 11/05/18 11/06/18 11/06/18 22:59 06:59 14:59 Intake Total 1374 1185 Output Total 600 500 Balance 774 685 Lab Results Last 24 Hours: Laboratory Results - last 24 hr 11/05/18 11/06/18 11/06/18 Range/Units 11:40 07:15 07:15 WBC 16.16 H (5.00-10.00) 10^3/uL RBC 3.09 L (3.80-5.50) 10^6/uL Hgb 10.8 L D (12.0-16.0) g/dL Hct 31.5 L (37.0-47.0) % MCV 101.9 H D (82.0-92.0) fL MCH 35.0 H (27.0-31.0) pg MCHC 34.3 (32.0-36.0) g/dL RDW 13.5 (11.5-14.5) % Plt Count 370 (150-400) 10^3/uL MPV 9.0 (7.4-10.4) fL Immature Gran % (Auto) 0.9 (0.0-5.0) % Neut % (Auto) 81.8 H (50.0-70.0) % Lymph % (Auto) 8.3 L (20.0-40.0) % [place] % (Auto) 8.8 H (2.0-8.0) % Eos % (Auto) 0.2 L (1.0-3.0) % Baso % (Auto) 0.0 (0.0-1.0) % Immature Gran # (Auto) 0.14 (0.00-0.50) 10^3/uL Neut # (Auto) 13.23 H (2.50-7.00) 10^3/uL Lymph # (Auto) 1.34 (1.00-4.00) 10^3/uL [place] # (Auto) 1.42 H (0.10-0.80) 10^3/uL Eos # (Auto) 0.03 L (0.10-0.30) 10^3/uL Baso # (Auto) 0.00 (0.00-0.10) 10^3/uL ABG pH 7.42 (7.35-7.45) ABG pCO2 45 (35-45) mmHG ABG pO2 53 L (80-105) mmHG ABG HCO3 29.2 H (22-26) mmol/L ABG Total CO2 31 H (23-27) mmol/L ABG O2 Saturation 87 L (95-98) % ABG Base Excess 5 H (-2-3) mmol/L O2 Delivery Device Room air Sodium 140 (136-145) mmol/L Potassium 3.8 (3.3-5.3) mmol/L Chloride 101 (98-115) mmol/L Carbon Dioxide 32.9 H (21.0-32.0) mmol/L Anion Gap 9.9 (5-15) mmol/L BUN 6 (6-25) mg/dL Creatinine 0.34 L (0.51-1.17) mg/dL Est Cr Clr Drug Dosing 116.91 mL/min Estimated GFR (MDRD) > 60 mL/min Glucose 101 H (75 - 99) mg/dL Calcium 8.0 L (8.7-10.3) mg/dL Total Bilirubin 0.3 (0.2-1.0) mg/dL AST 38 H (15-37) U/L ALT 55 (12-78) U/L Alkaline Phosphatase 202 H (46-116) IU/L Total Protein 5.7 L (6.4-8.2) g/dL Albumin 1.69 L (3.00-4.80) g/dL Kailash Results Last 24 Hours: Microbiology 11/04/18 12:40 Bacterial Identification - Preliminary Blood - Arm, Left Gram Negative Rods 11/04/18 12:30 Bacterial Identification - Preliminary Blood Gram Negative Rods 11/04/18 12:30 Aerobic Blood Culture - Final Blood - Venous Anaerobic Blood Culture - Final 11/04/18 12:40 Aerobic Blood Culture - Preliminary Blood - Venous - Lab Draw Anaerobic Blood Culture - Preliminary NO GROWTH AFTER 1 DAY 11/04/18 15:40 Urine Culture - Final Urine, Clean Catch Med Orders - Current: Current Medications Acetaminophen (Tylenol) 650 mg PO Q4H PRN PRN Reason: Pain Last Admin: 11/05/18 00:58 Dose: 650 mg Albuterol/Ipratropium (Duoneb 3.0-0.5 Mg/3 Ml) 3 ml NEB Q4HRRT PRN PRN Reason: Shortness of Breath Last Admin: 11/05/18 10:32 Dose: 3 ml Ceftriaxone Sodium (Rocephin) 2 gm IVPUSH Q24H [facility] Last Admin: 11/05/18 16:26 Dose: 2 gm Cyanocobalamin (Vitamin B12) 500 mcg PO DAILY [facility] Last Admin: 11/06/18 08:28 Dose: 500 mcg Enoxaparin Sodium (Lovenox) 40 mg SUBCUT Q24H [facility] Last Admin: 11/05/18 11:58 Dose: 40 mg Potassium Chloride/Sodium Chloride (Normal Saline With 20 Meq Kcl) 1,000 mls @ 125 mls/hr IV ASDIRECTED [facility] Last Admin: 11/06/18 02:57 Dose: 125 mls/hr Melatonin (Melatonin) 3 mg PO BEDTIME PRN PRN Reason: Insomnia Last Admin: 11/05/18 21:54 Dose: 3 mg Multivitamins/Minerals (Centrum) 1 tab PO DAILY [facility] Last Admin: 11/06/18 08:28 Dose: 1 tab Non-Formulary Medication - Moexipril 15mg 2 each PO DAILY [facility] Last Admin: 11/06/18 08:51 Dose: 2 each Sodium Chloride (Saline Flush) 10 ml FLUSH Q8HR PRN PRN Reason: keep vein open Last Admin: 11/05/18 16:31 Dose: 10 ml Discontinued Medications Sodium Chloride (Normal Saline) 1,000 mls @ 999 mls/hr IV ONETIME ONE Stop: 11/04/18 13:21 Last Admin: 11/04/18 14:33 Dose: Not Given Sodium Chloride (Normal Saline) 1,000 mls @ 125 mls/hr IV ASDIRECTED [facility] Last Admin: 11/04/18 14:23 Dose: 125 mls/hr Sodium Chloride (Normal Saline) 1,000 mls @ 999 mls/hr IV ONETIME ONE Stop: 11/04/18 14:49 Last Admin: 11/04/18 14:23 Dose: 999 mls/hr Sodium Chloride (Normal Saline) 50 mls @ 2.5 mls/sec IV ASDIRECTED ONE Stop: 11/04/18 16:28 Last Admin: 11/04/18 19:58 Dose: Not Given Azithromycin 500 mg/ Sodium (Chloride) 250 mls @ 250 mls/hr IV Q24H [facility] Last Admin: 11/04/18 18:05 Dose: 250 mls/hr Potassium Chloride/Dextrose (D5w With 20 Meq Kcl) 1,000 mls @ 125 mls/hr IV ASDIRECTED [facility] Iopamidol (Isovue-370 (76%)) 75 ml IVPUSH ONETIME ONE Stop: 11/04/18 16:28 Last Admin: 11/04/18 19:58 Dose: Not Given Moexipril HCl (Univasc) 30 mg PO DAILY [facility] Last Admin: 11/05/18 11:57 Dose: 30 mg Potassium Bicarb/Potassium Chloride (Potassium Chloride, Effervescent) 25 meq PO ONETIME ONE Stop: 11/05/18 12:01 Last Admin: 11/05/18 12:11 Dose: 25 meq Potassium Bicarbonate (Klor-Con Ef) 25 meq PO ONETIME ONE Stop: 11/05/18 16:46 Last Admin: 11/05/18 16:38 Dose: 25 meq - Exam Quality Assessment: Supplemental Oxygen, DVT Prophylaxis General: No Acute Distress Neck: No JVD Lungs: Decreased Breath Sounds, Rhonchi (Anterior rhonchus). No: Normal Respiratory Effort (Tripod stance per slipped breathing), Crackles, Rales Cardiovascular: Regular Rate, Regular Rhythm GI/Abdominal Exam: Soft (Female) Exam: Deferred Back Exam: No: CVA Tenderness (L), CVA Tenderness (R) Extremities: Pedal Edema (1+ right lower extremity) Peripheral Pulses: 2+: Radial (L), Radial (R) Skin: Dry Neurological: No New Focal Deficit Psy/Mental Status: Alert, Normal Affect, Normal Mood - Problem List Review Problem List Initiated/Reviewed/Updated: Yes - My Orders Last 24 Hours: My Active Orders 11/05/18 11:14 RT Incentive Spirometry [RC] Q1HWA 11/05/18 11:15 Cyanocobalamin (Vitamin B12) [Vitamin B12] 500 mcg PO DAILY 11/05/18 11:20 Patient Status [ADT] Routine 11/05/18 11:30 Enoxaparin [Lovenox] 40 mg SUBCUT Q24H FA/Lycopene/Lut/MV,Ca,Iron,Min [Centrum] 1 tab PO DAILY 11/06/18 09:00 Non-Formulary Medication [NF Drug] 2 each PO DAILY - Plan Plan:: Brief history, (see H&P for full details) Lalitha is a 68-year-old who was admitted by Dr. Hooks from [facility]. She had presented with a five-day history of increasing weakness, fatigue, developing cough, dizziness, feverish feeling, and chills, SOB along with symptoms suggestive of a UTI she did have a strong urine odor. Review of Dr. Ángela altamirano's examination patient had positive signs of dehydration. She has history of hyponatremia, tobacco dependency, EtOH use along with hypertension. Although she has no formal diagnosis/staging of COPD she has been taking increasing dosages of albuterol/GISSELLE 4-5 times daily--up from 1-2 times daily. No No baseline formal spirometry on file. She was initially started on antibiotics as initial chest x-ray reading showed possibility of CAP however subsequent chest CT ruled out pulmonary pathology so antibiotics were descalated Pertinent workup Chest x-ray; left basal pace that he likely atelectasis with borderline central vascular congestion Chest CT; no acute findings Anaerobic BC positive for gram-negative rods UC, gram-negative rods, oxidase negative UA, [facility], leukocyte esterase, hematuria, cloudy in appearance Update on rounds, patient ~10 weight gain however increased appetite. No fluid overload. Likely indicator of significant protein malnutrition and dehydration prior to admission. Overall is feeling better. Primary hospital problem Bacteremia/UTI Hypoxemia, PO2 53 Hypokalemia, resolved Neutrophilia/Monocytosis Emphysema/COPD, clinical, non-staged Protein malnutrition Chronic hospital problems Hypertension, EtOH abuse Tobacco dependency Chronic bilateral rib fractures Hx, vertebral plasty Disposition/plan --Continue with inpatient --continue Rocephin --Change and reduce IV fluids --BC surveillance, --oxygen support PRN TKS 90-93% --Protein supplementation --assess pneumococcal/influenza vaccination status, --respiratory therapist consultation for tobacco cessation, --Add LABA/LAMA Anoro Ellipta to start today --DVT prophylaxis onboard --CBC, BMP, CRP a.m.
[2018-11-06] MEDS: D5 1/2 NS w/ 20 mEq/L KCl 1,000 ML IV SCH (11:27)
[2018-11-06] MEDS: Enoxaparin 40 MG/0.4 ML Syringe SUBCUT SCH (11:36)
[2018-11-06] MEDS: Umeclidinium Brm/Vilanterol Tr 62.5-25 MCG 7 Puff Inhaler IH SCH (11:47)
[2018-11-06] MEDS: Sodium Chloride 0.9% 10 ML Syringe FLUSH PRN (16:45)
[2018-11-06] MEDS: cefTRIAXone 2 GM Vial IVPUSH SCH (16:45)
[2018-11-06] MEDS: Melatonin 3 MG Tab PO PRN (20:55)
[2018-11-07] MEDS: D5 1/2 NS w/ 20 mEq/L KCl 1,000 ML IV SCH (03:05)
[2018-11-07] MEDS: Acetaminophen 325 MG Tab PO PRN (06:52)
[2018-11-07 08:25] LABS: ANION GAP 9.9 mmol/L (5-15); CHLORIDE,CL 102 mmol/L (98-115); SODIUM,NA 143 mmol/L (136-145)
[2018-11-07] MEDS ORDERED: Sodium Chloride 0.9% 10 ML Syringe FLUSH PRN (10:10)
[2018-11-07] MEDS: Cyanocobalamin (Vitamin B12) 500 MCG Tab PO SCH (10:12)
[2018-11-07] MEDS: Multivitamins with Minerals/Iron/Folic Acid/Lycopene Tab PO SCH (10:12)
[2018-11-07] MEDS: Umeclidinium Brm/Vilanterol Tr 62.5-25 MCG 7 Puff Inhaler IH SCH (10:14)
--- NOTE | 2018-11-07 10:19 | PCM.PN ---
- General Info Date of Service: 11/07/18 Functional Status: Reports: Pain Controlled, Tolerating Diet, Incentive Spirometry. Denies: Ambulating, New Symptoms - Review of Systems General: Denies: Fever, Weakness, Fatigue, Malaise HEENT: Denies: Dysphasia Pulmonary: Reports: Shortness of Breath. Denies: Cough, Sputum, Hemoptysis Cardiovascular: Reports: Dyspnea on Exertion, Edema Gastrointestinal: Reports: No Symptoms Genitourinary: Reports: No Symptoms Musculoskeletal: Reports: No Symptoms Skin: Reports: No Symptoms Neurological: Reports: No Symptoms Psychiatric: Reports: No Symptoms. Denies: Cravings - Patient Data Vitals - Most Recent: Last Vital Signs Temp 99.0 F 11/07/18 07:00 Pulse 94 11/07/18 07:00 Resp 20 11/07/18 07:00 BP 105/64 11/07/18 07:00 Pulse Ox 96 11/07/18 07:00 Weight - Most Recent: 138 lb 3.2 oz I&O - Last 24 Hours: Intake & Output 11/06/18 11/07/18 11/07/18 22:59 06:59 14:59 Intake Total 1545 980 Output Total 600 600 Balance 945 380 Lab Results Last 24 Hours: Laboratory Results - last 24 hr 11/07/18 11/07/18 Range/Units 07:20 07:20 WBC 12.83 H (5.00-10.00) 10^3/uL RBC 2.89 L (3.80-5.50) 10^6/uL Hgb 10.0 L (12.0-16.0) g/dL Hct 30.0 L (37.0-47.0) % MCV 103.8 H (82.0-92.0) fL MCH 34.6 H (27.0-31.0) pg MCHC 33.3 (32.0-36.0) g/dL RDW 13.8 (11.5-14.5) % Plt Count 398 (150-400) 10^3/uL MPV 9.1 (7.4-10.4) fL Immature Gran % (Auto) 0.9 (0.0-5.0) % Neut % (Auto) 78.4 H (50.0-70.0) % Lymph % (Auto) 9.4 L (20.0-40.0) % [place] % (Auto) 10.6 H (2.0-8.0) % Eos % (Auto) 0.5 L (1.0-3.0) % Baso % (Auto) 0.2 (0.0-1.0) % Immature Gran # (Auto) 0.12 (0.00-0.50) 10^3/uL Neut # (Auto) 10.07 H (2.50-7.00) 10^3/uL Lymph # (Auto) 1.20 (1.00-4.00) 10^3/uL [place] # (Auto) 1.36 H (0.10-0.80) 10^3/uL Eos # (Auto) 0.06 L (0.10-0.30) 10^3/uL Baso # (Auto) 0.02 (0.00-0.10) 10^3/uL Sodium 143 (136-145) mmol/L Potassium 3.9 (3.3-5.3) mmol/L Chloride 102 (98-115) mmol/L Carbon Dioxide 35.0 H (21.0-32.0) mmol/L Anion Gap 9.9 (5-15) mmol/L BUN 5 L (6-25) mg/dL Creatinine 0.38 L (0.51-1.17) mg/dL Est Cr Clr Drug Dosing 104.60 mL/min Estimated GFR (MDRD) > 60 mL/min Glucose 105 H (75 - 99) mg/dL Calcium 8.0 L (8.7-10.3) mg/dL C-Reactive Protein 13.0 H (0.0-0.9) mg/dL Kailash Results Last 24 Hours: Microbiology 11/04/18 15:40 Bacterial ID and Susceptibility - Preliminary Urine Gram Negative Rods 11/04/18 12:40 Aerobic Blood Culture - Preliminary Blood - Venous - Lab Draw Anaerobic Blood Culture - Preliminary NO GROWTH AFTER 2 DAYS 11/04/18 12:40 Bacterial Identification - Preliminary Blood - Arm, Left Gram Negative Rods 11/04/18 12:30 Bacterial Identification - Preliminary Blood Gram Negative Rods Med Orders - Current: Current Medications Acetaminophen (Tylenol) 650 mg PO Q4H PRN PRN Reason: Pain Last Admin: 11/07/18 06:52 Dose: 650 mg Albuterol/Ipratropium (Duoneb 3.0-0.5 Mg/3 Ml) 3 ml NEB Q4HRRT PRN PRN Reason: Shortness of Breath Last Admin: 11/05/18 10:32 Dose: 3 ml Ceftriaxone Sodium (Rocephin) 2 gm IVPUSH Q24H [facility] Last Admin: 11/06/18 16:45 Dose: 2 gm Cyanocobalamin (Vitamin B12) 500 mcg PO DAILY [facility] Last Admin: 11/06/18 08:28 Dose: 500 mcg Enoxaparin Sodium (Lovenox) 40 mg SUBCUT Q24H [facility] Last Admin: 11/06/18 11:36 Dose: 40 mg Potassium Chloride/Dextrose/Sod Cl (D5 1/2 Ns W/ 20 Meq/L Kcl) 1,000 mls @ 65 mls/hr IV ASDIRECTED [facility] Last Admin: 11/07/18 03:05 Dose: 65 mls/hr Melatonin (Melatonin) 3 mg PO BEDTIME PRN PRN Reason: Insomnia Last Admin: 11/06/18 20:55 Dose: 3 mg Moexipril HCl (Univasc) 30 mg PO DAILY [facility] Multivitamins/Minerals (Centrum) 1 tab PO DAILY [facility] Last Admin: 11/06/18 08:28 Dose: 1 tab Sodium Chloride (Saline Flush) 10 ml FLUSH Q8HR PRN PRN Reason: keep vein open Last Admin: 11/06/18 16:45 Dose: 10 ml Umeclidinium/Vilanterol (Anoro Ellipta 62.5-25 Mcg) 62.5 mcg IH DAILY [facility] Last Admin: 11/06/18 11:47 Dose: 1 puff Discontinued Medications Sodium Chloride (Normal Saline) 1,000 mls @ 999 mls/hr IV ONETIME ONE Stop: 11/04/18 13:21 Last Admin: 11/04/18 14:33 Dose: Not Given Sodium Chloride (Normal Saline) 1,000 mls @ 125 mls/hr IV ASDIRECTED [facility] Last Admin: 11/04/18 14:23 Dose: 125 mls/hr Sodium Chloride (Normal Saline) 1,000 mls @ 999 mls/hr IV ONETIME ONE Stop: 11/04/18 14:49 Last Admin: 11/04/18 14:23 Dose: 999 mls/hr Sodium Chloride (Normal Saline) 50 mls @ 2.5 mls/sec IV ASDIRECTED ONE Stop: 11/04/18 16:28 Last Admin: 11/04/18 19:58 Dose: Not Given Azithromycin 500 mg/ Sodium (Chloride) 250 mls @ 250 mls/hr IV Q24H [facility] Last Admin: 11/04/18 18:05 Dose: 250 mls/hr Potassium Chloride/Dextrose (D5w With 20 Meq Kcl) 1,000 mls @ 125 mls/hr IV ASDIRECTED [facility] Potassium Chloride/Sodium Chloride (Normal Saline With 20 Meq Kcl) 1,000 mls @ 125 mls/hr IV ASDIRECTED [facility] Last Admin: 11/06/18 02:57 Dose: 125 mls/hr Iopamidol (Isovue-370 (76%)) 75 ml IVPUSH ONETIME ONE Stop: 11/04/18 16:28 Last Admin: 11/04/18 19:58 Dose: Not Given Moexipril HCl (Univasc) 30 mg PO DAILY [facility] Last Admin: 11/05/18 11:57 Dose: 30 mg Non-Formulary Medication - Moexipril 15mg 2 each PO DAILY [facility] Last Admin: 11/06/18 08:51 Dose: 2 each Potassium Bicarb/Potassium Chloride (Potassium Chloride, Effervescent) 25 meq PO ONETIME ONE Stop: 11/05/18 12:01 Last Admin: 11/05/18 12:11 Dose: 25 meq Potassium Bicarbonate (Klor-Con Ef) 25 meq PO ONETIME ONE Stop: 11/05/18 16:46 Last Admin: 11/05/18 16:38 Dose: 25 meq - Exam Quality Assessment: Supplemental Oxygen General: Alert, Oriented, Cooperative, No Acute Distress Neck: No JVD Lungs: Decreased Breath Sounds, Other (Tripod stance with mild pursed lip breathing) Cardiovascular: Regular Rate, Regular Rhythm GI/Abdominal Exam: Soft (Female) Exam: Deferred Back Exam: No: CVA Tenderness (L), CVA Tenderness (R) Extremities: Pedal Edema (2+ pedal edema LLE) Peripheral Pulses: 2+: Radial (L), Radial (R) Skin: Warm, Dry, Intact Neurological: No New Focal Deficit - Problem List Review Problem List Initiated/Reviewed/Updated: Yes - My Orders Last 24 Hours: My Active Orders 11/06/18 11:15 D5 1/2 NS w/ 20 mEq/L KCl 1,000 ml IV ASDIRECTED 11/06/18 11:45 Umeclidinium Brm/Vilanterol Tr [Anoro Ellipta 62.5-25 MCG] 62.5 mcg IH DAILY 11/07/18 09:00 Moexipril [Univasc] 30 mg PO DAILY - Plan Plan:: Brief history, (see H&P for full details) Lalitha is a 68-year-old who was admitted by Dr. Hooks from [facility]. She had presented with a five-day history of increasing weakness, fatigue, developing cough, dizziness, feverish feeling, and chills, SOB along with symptoms suggestive of a UTI she did have a strong urine odor. Review of Dr. Ángela altamirano's examination patient had positive signs of dehydration. She has history of hyponatremia, tobacco dependency, EtOH use along with hypertension. Although she has no formal diagnosis/staging of COPD she has been taking increasing dosages of albuterol/GISSELLE 4-5 times daily--up from 1-2 times daily. No No baseline formal spirometry on file. She was initially started on antibiotics as initial chest x-ray reading showed possibility of CAP however subsequent chest CT ruled out pulmonary pathology so antibiotics were descalated Pertinent workup Chest x-ray; left basal pace that he likely atelectasis with borderline central vascular congestion Chest CT; no acute findings Both Aerobic/Anaerobic BC positive for gram-negative rods UC, gram-negative rods, oxidase negative UA, [facility], leukocyte esterase, hematuria, cloudy in appearance Update on rounds, seems to be responding well to antibiotics, CRP dramatically reduced, white count improving, oxygen requirements vacillate between 1-4 L depending on ambulatory status. No tobacco or EtOH cravings, electrolytes now normalized, although patient ~10 weight gain however increased appetite and weight 138 pounds consistent with patient's healthy home weight per report/EMR- Likely indicator of significant protein malnutrition and dehydration prior to admission. Started Anora Ellipta yesteday, Primary hospital problem Bacteremia/UTI Hypoxemia, PO2 53 Hypokalemia, resolved Neutrophilia/Monocytosis Emphysema/COPD, clinical, non-staged Protein malnutrition Chronic hospital problems Hypertension, EtOH abuse, Tobacco dependency Chronic bilateral rib fractures Hx, vertebral plasty Disposition/plan --Continue with inpatient --continue Rocephin --Saline lock IV, stop IV fluids --oxygen support PRN TKS 90-93%. Attempt to wean./titrate, Prepare for home O2 --Protein supplementation --Added TEDS --Add folic acid and thiamine vitamin --assess pneumococcal/influenza vaccination status, --Start ambulation today --DVT prophylaxis onboard --Repeat blood cultures today, --Have patient practice/teach INH with placebo device --Anticipate home discharge 1-2 days with home oxygen as long as blood cultures and clinical condition continue to improve
[2018-11-07] MEDS: Folic Acid 1 MG Tab PO SCH (11:38)
[2018-11-07] MEDS: Enoxaparin 40 MG/0.4 ML Syringe SUBCUT SCH (11:38)
[2018-11-07] MEDS: cefTRIAXone 2 GM Vial IVPUSH SCH (16:48)
[2018-11-07] MEDS: Sodium Chloride 0.9% 10 ML Syringe FLUSH PRN (16:48)
[2018-11-07] MEDS: Melatonin 3 MG Tab PO PRN (20:36)
[2018-11-07] MEDS: Thiamine 100 MG Tab PO SCH (20:36)
[2018-11-08 08:23] LABS: ANION GAP 7.6 mmol/L (5-15); CHLORIDE,CL 102 mmol/L (98-115); SODIUM,NA 144 mmol/L (136-145)
[2018-11-08] MEDS: Umeclidinium Brm/Vilanterol Tr 62.5-25 MCG 7 Puff Inhaler IH SCH (09:19)
[2018-11-08] MEDS: Folic Acid 1 MG Tab PO SCH (09:20)
[2018-11-08] MEDS: Cyanocobalamin (Vitamin B12) 500 MCG Tab PO SCH (09:20)
[2018-11-08] MEDS: Multivitamins with Minerals/Iron/Folic Acid/Lycopene Tab PO SCH (09:20)
--- NOTE | 2018-11-08 11:47 | PCM.PN ---
- General Info Date of Service: 11/08/18 Functional Status: Reports: Pain Controlled, Tolerating Diet, Ambulating, Urinating. Denies: New Symptoms - Review of Systems General: Reports: Appetite (Good appetite). Denies: Fever, Weakness, Fatigue, Malaise HEENT: Reports: No Symptoms Pulmonary: Reports: Shortness of Breath. Denies: Cough, Sputum, Hemoptysis, Wheezing Cardiovascular: Reports: Dyspnea on Exertion. Denies: Orthopnea, PND Gastrointestinal: Reports: No Symptoms Genitourinary: Reports: No Symptoms Musculoskeletal: Reports: No Symptoms Skin: Denies: Cyanosis, Pallor, Pruritis Neurological: Denies: Confusion, Headache, Numbness, Seizure, Syncope, Tingling Psychiatric: Reports: No Symptoms - Patient Data Vitals - Most Recent: Last Vital Signs Temp 99.0 F 11/08/18 06:40 Pulse 101 H 11/08/18 06:40 Resp 20 11/08/18 06:40 BP 127/70 11/08/18 09:21 Pulse Ox 93 L 11/08/18 06:40 Weight - Most Recent: 126 lb 5 oz I&O - Last 24 Hours: Intake & Output 11/07/18 11/08/18 11/08/18 22:59 06:59 14:59 Intake Total 720 550 Output Total 300 200 Balance 420 350 Lab Results Last 24 Hours: Laboratory Results - last 24 hr 11/08/18 11/08/18 Range/Units 07:23 07:23 WBC 11.56 H (5.00-10.00) 10^3/uL RBC 3.05 L (3.80-5.50) 10^6/uL Hgb 10.4 L (12.0-16.0) g/dL Hct 31.5 L (37.0-47.0) % MCV 103.3 H (82.0-92.0) fL MCH 34.1 H (27.0-31.0) pg MCHC 33.0 (32.0-36.0) g/dL RDW 13.8 (11.5-14.5) % Plt Count 411 H (150-400) 10^3/uL MPV 9.0 (7.4-10.4) fL Immature Gran % (Auto) 1.0 (0.0-5.0) % Neut % (Auto) 77.1 H (50.0-70.0) % Lymph % (Auto) 10.0 L (20.0-40.0) % [place] % (Auto) 11.0 H (2.0-8.0) % Eos % (Auto) 0.6 L (1.0-3.0) % Baso % (Auto) 0.3 (0.0-1.0) % Immature Gran # (Auto) 0.11 (0.00-0.50) 10^3/uL Neut # (Auto) 8.92 H (2.50-7.00) 10^3/uL Lymph # (Auto) 1.16 (1.00-4.00) 10^3/uL [place] # (Auto) 1.27 H (0.10-0.80) 10^3/uL Eos # (Auto) 0.07 L (0.10-0.30) 10^3/uL Baso # (Auto) 0.03 (0.00-0.10) 10^3/uL Sodium 144 (136-145) mmol/L Potassium 3.7 (3.3-5.3) mmol/L Chloride 102 (98-115) mmol/L Carbon Dioxide 38.1 H (21.0-32.0) mmol/L Anion Gap 7.6 (5-15) mmol/L BUN 6 (6-25) mg/dL Creatinine 0.36 L (0.51-1.17) mg/dL Est Cr Clr Drug Dosing 110.41 mL/min Estimated GFR (MDRD) > 60 mL/min Glucose 101 H (75 - 99) mg/dL Calcium 8.2 L (8.7-10.3) mg/dL Kailash Results Last 24 Hours: Microbiology 11/04/18 12:40 Bacterial Identification - Preliminary Blood - Arm, Left Escherichia Coli 11/04/18 15:40 Bacterial ID and Susceptibility - Final Urine Escherichia Coli 11/04/18 12:30 Bacterial Identification - Preliminary Blood Escherichia Coli 11/04/18 12:40 Aerobic Blood Culture - Preliminary Blood - Venous - Lab Draw Anaerobic Blood Culture - Preliminary NO GROWTH AFTER 3 DAYS Med Orders - Current: Current Medications Acetaminophen (Tylenol) 650 mg PO Q4H PRN PRN Reason: Pain Last Admin: 11/07/18 06:52 Dose: 650 mg Albuterol/Ipratropium (Duoneb 3.0-0.5 Mg/3 Ml) 3 ml NEB Q4HRRT PRN PRN Reason: Shortness of Breath Last Admin: 11/05/18 10:32 Dose: 3 ml Ceftriaxone Sodium (Rocephin) 2 gm IVPUSH Q24H [facility] Last Admin: 11/07/18 16:48 Dose: 2 gm Cyanocobalamin (Vitamin B12) 500 mcg PO DAILY [facility] Last Admin: 11/08/18 09:20 Dose: 500 mcg Enoxaparin Sodium (Lovenox) 40 mg SUBCUT Q24H [facility] Last Admin: 11/07/18 11:38 Dose: 40 mg Folic Acid (Folic Acid) 1 mg PO DAILY [facility] Last Admin: 11/08/18 09:20 Dose: 1 mg Melatonin (Melatonin) 3 mg PO BEDTIME PRN PRN Reason: Insomnia Last Admin: 11/07/18 20:36 Dose: 3 mg Moexipril HCl (Univasc) 30 mg PO DAILY [facility] Last Admin: 11/08/18 09:21 Dose: 30 mg Multivitamins/Minerals (Centrum) 1 tab PO DAILY [facility] Last Admin: 11/08/18 09:20 Dose: 1 tab Sodium Chloride (Saline Flush) 10 ml FLUSH Q8HR PRN PRN Reason: keep vein open Last Admin: 11/07/18 16:48 Dose: 10 ml Thiamine HCl (Vitamin B-1) 100 mg PO BEDTIME [facility] Last Admin: 11/07/18 20:36 Dose: 100 mg Umeclidinium/Vilanterol (Anoro Ellipta 62.5-25 Mcg) 62.5 mcg IH DAILY [facility] Last Admin: 11/08/18 09:19 Dose: 1 puff Discontinued Medications Sodium Chloride (Normal Saline) 1,000 mls @ 999 mls/hr IV ONETIME ONE Stop: 11/04/18 13:21 Last Admin: 11/04/18 14:33 Dose: Not Given Sodium Chloride (Normal Saline) 1,000 mls @ 125 mls/hr IV ASDIRECTED [facility] Last Admin: 11/04/18 14:23 Dose: 125 mls/hr Sodium Chloride (Normal Saline) 1,000 mls @ 999 mls/hr IV ONETIME ONE Stop: 11/04/18 14:49 Last Admin: 11/04/18 14:23 Dose: 999 mls/hr Sodium Chloride (Normal Saline) 50 mls @ 2.5 mls/sec IV ASDIRECTED ONE Stop: 11/04/18 16:28 Last Admin: 11/04/18 19:58 Dose: Not Given Azithromycin 500 mg/ Sodium (Chloride) 250 mls @ 250 mls/hr IV Q24H [facility] Last Admin: 11/04/18 18:05 Dose: 250 mls/hr Potassium Chloride/Dextrose (D5w With 20 Meq Kcl) 1,000 mls @ 125 mls/hr IV ASDIRECTED [facility] Potassium Chloride/Sodium Chloride (Normal Saline With 20 Meq Kcl) 1,000 mls @ 125 mls/hr IV ASDIRECTED [facility] Last Admin: 11/06/18 02:57 Dose: 125 mls/hr Potassium Chloride/Dextrose/Sod Cl (D5 1/2 Ns W/ 20 Meq/L Kcl) 1,000 mls @ 65 mls/hr IV ASDIRECTED [facility] Last Admin: 11/07/18 03:05 Dose: 65 mls/hr Iopamidol (Isovue-370 (76%)) 75 ml IVPUSH ONETIME ONE Stop: 11/04/18 16:28 Last Admin: 11/04/18 19:58 Dose: Not Given Moexipril HCl (Univasc) 30 mg PO DAILY [facility] Last Admin: 11/05/18 11:57 Dose: 30 mg Non-Formulary Medication - Moexipril 15mg 2 each PO DAILY [facility] Last Admin: 11/06/18 08:51 Dose: 2 each Potassium Bicarb/Potassium Chloride (Potassium Chloride, Effervescent) 25 meq PO ONETIME ONE Stop: 11/05/18 12:01 Last Admin: 11/05/18 12:11 Dose: 25 meq Potassium Bicarbonate (Klor-Con Ef) 25 meq PO ONETIME ONE Stop: 11/05/18 16:46 Last Admin: 11/05/18 16:38 Dose: 25 meq - Exam Quality Assessment: Supplemental Oxygen, DVT Prophylaxis General: Alert, Oriented, Cooperative, No Acute Distress Neck: No JVD Lungs: Decreased Breath Sounds. No: Crackles, Rales, Rhonchi, Wheezing Cardiovascular: Regular Rate, Regular Rhythm GI/Abdominal Exam: Soft (Female) Exam: Deferred Back Exam: No: CVA Tenderness (R) Extremities: Pedal Edema (Right lower extremity) Peripheral Pulses: 2+: Radial (L), Radial (R) Skin: Dry Neurological: No New Focal Deficit Psy/Mental Status: Alert, Normal Affect, Normal Mood - Problem List Review Problem List Initiated/Reviewed/Updated: Yes - My Orders Last 24 Hours: My Active Orders 11/07/18 10:18 Antiembolic Devices [RC] PER UNIT ROUTINE [facility] Hose Substitution [Sequential Compression Device] [OM.PC] Routine 11/07/18 10:53 CULTURE BLOOD [BC] Stat 11/07/18 11:00 CULTURE BLOOD [BC] Stat 11/07/18 21:00 Thiamine [Vitamin B-1] 100 mg PO BEDTIME - Plan Plan:: Brief history, (see H&P for full details) Lalitha is a 68-year-old who was admitted by Dr. Hooks from [facility]. She had presented with a five-day history of increasing weakness, fatigue, developing cough, dizziness, feverish feeling, and chills, SOB along with symptoms suggestive of a UTI she did have a strong urine odor. Review of Dr. Ángela altamirano's examination patient had positive signs of dehydration. She has history of hyponatremia, tobacco dependency, EtOH use along with hypertension. Although she has no formal diagnosis/staging of COPD she has been taking increasing dosages of albuterol/GISSELLE 4-5 times daily--up from 1-2 times daily. No No baseline formal spirometry on file. She was initially started on antibiotics as initial chest x-ray reading showed possibility of CAP however subsequent chest CT ruled out pulmonary pathology so antibiotics were descalated Pertinent workup Chest x-ray; left opacity atelectasis with borderline central vascular congestion Chest CT; no acute findings Anaerobic BC positive for gram-negative rods UC, gram-negative rods, oxidase negative UA, [facility], leukocyte esterase, hematuria, cloudy in appearance Update today during rounds: No Overnight call/concerns, No fever, VSS, UC Armstrong- sensitive, patient feels Anora INH working well for her, hypoxic without oxygen on ambulation 75-85%, Blood cultures Escherichia coli, WBC/inflammatory indices improving. Is feeling really good today Primary hospital problem Bacteremia,/UTI Hypokalemia, resolved Neutrophilia/Monocytosis, improving Emphysema/COPD, clinical, non-staged, no history of hospitalization exacerbation Protein malnutrition, educated regarding vitamins, nutrient/dense and small meals frequently Chronic hospital problems Hypertension, EtOH abuse, no cravings Tobacco dependency, significant decrease recently Chronic bilateral rib fractures Hx, vertebral plasty Disposition/plan --continue inpatient --continue Rocephin, --BC surveillance ongoing --Assessed ambulatory status, will need home O2, RT consult to set up at home Friday morning --oxygen support if needed TKS 90-92% --Flu vaccine and pneumococcal verified through [facility]. Patient is UTD Discharge tomorrow Friday with home oxygen, and PO antibiotics. RT consulted and will begin submitting paperwork as O2 needs to be at home prior to patient. Rx Anora Ellipta sent to pharmacy through [facility]. She can take hospital administered inhaler with her. PT consult placed through [facility] to Mariya pedro today due to deconditioning. Needs ongoing smoking cessation counseling. Consider PFT as o/p.
[2018-11-08] MEDS: Enoxaparin 40 MG/0.4 ML Syringe SUBCUT SCH (13:45)
[2018-11-08] MEDS: cefTRIAXone 2 GM Vial IVPUSH SCH (16:40)
[2018-11-08] MEDS ORDERED: guaiFENesin 600 MG Tab.ER PO PRN (16:59)
[2018-11-08] MEDS: Thiamine 100 MG Tab PO SCH (20:31)
[2018-11-08] MEDS: Melatonin 3 MG Tab PO PRN (20:31)
[2018-11-09] MEDS: Folic Acid 1 MG Tab PO SCH (08:13)
[2018-11-09] MEDS: Multivitamins with Minerals/Iron/Folic Acid/Lycopene Tab PO SCH (08:13)
[2018-11-09] MEDS: Cyanocobalamin (Vitamin B12) 500 MCG Tab PO SCH (08:14)
[2018-11-09 08:16] VITALS: BP 136/76
[2018-11-09] MEDS: Umeclidinium Brm/Vilanterol Tr 62.5-25 MCG 7 Puff Inhaler IH SCH (08:58)
--- NOTE | 2018-11-09 11:36 | PCM.DCSUM1 ---
Discharge Summary - Hospital Course Free Text/Narrative:: Date of admission: 11/04/18 Date of discharge: 11/09/18 Admission diagnoses: Hypotension due to hypovolemia Dehydration Decreased oral intake Nausea Fatigue, unspecified type Dysuria Essential hypertension, benign Hyponatremia Tobacco dependence Discharge diagnoses: Bacteremia UTI Sepsis, present on admission, since resolved Hypotension due to hypovolemia, resolved Hypokalemia, resolved Neutrophilia, improving Hypoxic respiratory failure, likely chronic COPD, clinical, non-staged Chronic cough Protein malnutrition Essential hypertension, benign Hyponatremia Chronic bilateral rib fractures Hx vertebral plasty EtOH abuse Tobacco dependence Hospital course: 68yoF with a history notable for HTN and tobacco dependence who presented to [facility] with a five-day history of increasing weakness, fatigue, developing cough and shortness of breath, dizziness, subjective fever and chills , along with symptoms suggestive of a UTI. She had clinical evidence of dehydration and suspicion for underlying infection , but given limited diagnostic ability at [facility], was directly admitted for further work-up and management. Initial VS, labs, and imaging was fitting with sepsis due urinary tract infection, but also with evidence of hypoxic respiratory failure. Initial CXR was suggestive of possible LLL infiltrate versus atelectasis for which CT was recommended and showed no abnormalities. She was initially given ceftriaxone and azithromycin, followed by continued daily administration of ceftriaxone. VS and clinical status improved with IVF, but she did remain hypoxemic suspicious for underlying chronic oxygen requirement likely related to COPD, for which she has had clinical evidence with longstanding tobacco use, chronic cough, and multiple times daily use of albuterol, but without prior PFT. Urine and blood cultures later grew E.coli, fitting with urinary source for sepsis and bacteremia. She was started on Anoro with subsequent improvement in pulmonary status, but ongoing requirement for oxygen which she was discharged home with. Discharge medication changes: - Oxygen 2lpm via nasal cannula - Anoro daily, rx sent through [facility] - Cefdinir x 10 days to complete 14 day course for bacteremia - DuoNebs q4h prn wheezing/shortness of breath Follow-up plans: - Appt at [facility] in 1 week - Pulmonary function tests, ordered in [facility] to be completed in [facility] - Physical therapy, ordered in [facility] to be scheduled at [facility] - Encourage ongoing tobacco cessation and minimizing alcohol use - Discharge Data Discharge Date: 11/09/18 Discharge Disposition: Home, Self-Care 01 Condition: Good - Patient Instructions Diet: Usual Diet as Tolerated Activity: As Tolerated Notify Provider of: Fever, Increased Pain, Nausea and/or Vomiting - Discharge Plan *PRESCRIPTION DRUG MONITORING PROGRAM REVIEWED*: Not Applicable *COPY OF PRESCRIPTION DRUG MONITORING REPORT IN PATIENT JENNIFER: Not Applicable Prescriptions/Med Rec: Albuterol/Ipratropium [DuoNeb 3.0-0.5 MG/3 ML] 3 ml NEB Q4HRRT PRN #30 neb PRN Reason: Shortness Of Breath Cefdinir 300 mg PO BID 10 Days #20 capsule Home Medications: Home Meds diphenhydrAMINE [Benadryl] 25 mg PO QID PRN 03/31/17 [History] Cyanocobalamin (Vitamin B12) [Vitamin B12] 500 mcg PO DAILY #30 tablet 04/03/17 [Rx] Moexipril [Univasc] 30 mg PO DAILY #60 tablet 04/03/17 [Rx] Albuterol [Ventolin HFA] 2 puff INH Q4H PRN 11/04/18 [History] hydroCHLOROthiazide [Hydrochlorothiazide] 12.5 mg PO DAILY 11/04/18 [History] Acetaminophen [Tylenol] 650 mg PO Q4H PRN tablet 11/09/18 [Rx] Albuterol/Ipratropium [DuoNeb 3.0-0.5 MG/3 ML] 3 ml NEB Q4HRRT PRN #30 neb 11/09 [Rx] Cefdinir 300 mg PO BID 10 Days #20 capsule 11/09/18 [Rx] FA/Lycopene/Lut/MV,Ca,Iron,Min [Centrum] 1 tab PO DAILY tablet 11/09/18 [Rx] Umeclidinium Brm/Vilanterol Tr [Anoro Ellipta 62.5-25 MCG] 62.5 mcg IH DAILY inhaler 11/09/18 [Rx] guaiFENesin [Mucinex] 600 mg PO BID PRN tab.er 11/09/18 [Rx] Referrals: Eli Calhoun NP [Nurse Practitioner] - 11/17/18 1:00 pm - Discharge Summary/Plan Comment DC Time >30 min.: Yes - General Info Subjective Update: Mrs. Parra reports feeling well this morning, with dramatic improvement in myriad symptoms she had on admission. Ongoing nonproductive chronic cough. Reports some swelling in her ankles, which happens when she isn't as active. Hydration and appetite have improved, as has fatigue. Ambulating without difficulty. Voiding and stooling without difficulty. Comfortable with inhaler use and oxygen. - Patient Data Vitals - Most Recent: Last Vital Signs Temp 36.3 C 11/09/18 08:00 Pulse 97 11/09/18 08:00 Resp 19 11/09/18 08:30 BP 136/76 11/09/18 08:15 Pulse Ox 94 L 11/09/18 08:30 Weight - Most Recent: 57.294 kg I&O - Last 24 hours: Intake & Output 11/08/18 11/09/18 11/09/18 22:59 06:59 14:59 Intake Total 320 350 Output Total 150 Balance 170 350 Lab Results - Last 24 hrs: Laboratory Results - last 24 hr 11/09/18 Range/Units 07:25 WBC 11.29 H (5.00-10.00) 10^3/uL RBC 3.05 L (3.80-5.50) 10^6/uL Hgb 10.4 L (12.0-16.0) g/dL Hct 32.3 L (37.0-47.0) % MCV 105.9 H (82.0-92.0) fL MCH 34.1 H (27.0-31.0) pg MCHC 32.2 (32.0-36.0) g/dL RDW 13.7 (11.5-14.5) % Plt Count 432 H (150-400) 10^3/uL MPV 8.9 (7.4-10.4) fL Immature Gran % (Auto) 0.9 (0.0-5.0) % Neut % (Auto) 77.3 H (50.0-70.0) % Lymph % (Auto) 9.7 L (20.0-40.0) % Dillon % (Auto) 11.1 H (2.0-8.0) % Eos % (Auto) 0.7 L (1.0-3.0) % Baso % (Auto) 0.3 (0.0-1.0) % Immature Gran # (Auto) 0.10 (0.00-0.50) 10^3/uL Neut # (Auto) 8.73 H (2.50-7.00) 10^3/uL Lymph # (Auto) 1.10 (1.00-4.00) 10^3/uL Dillon # (Auto) 1.25 H (0.10-0.80) 10^3/uL Eos # (Auto) 0.08 L (0.10-0.30) 10^3/uL Baso # (Auto) 0.03 (0.00-0.10) 10^3/uL Platelet Estimate Increased Anisocytosis 1+ slight Macrocytosis 2+ moderate ASHANTI Results - Last 24 hrs: Microbiology 11/04/18 12:30 Bacterial Identification - Preliminary Blood Escherichia Coli 11/04/18 12:40 Aerobic Blood Culture - Preliminary Blood - Venous - Lab Draw Anaerobic Blood Culture - Preliminary NO GROWTH AFTER 4 DAYS 11/07/18 10:53 Aerobic Blood Culture - Preliminary Blood - Venous NO GROWTH AFTER 1 DAY Anaerobic Blood Culture - Preliminary NO GROWTH AFTER 1 DAY 11/07/18 11:00 Aerobic Blood Culture - Preliminary Blood - Venous - Lab Draw NO GROWTH AFTER 1 DAY Anaerobic Blood Culture - Preliminary NO GROWTH AFTER 1 DAY Med Orders - Current: Current Medications Acetaminophen (Tylenol) 650 mg PO Q4H PRN PRN Reason: Pain Last Admin: 11/07/18 06:52 Dose: 650 mg Albuterol/Ipratropium (Duoneb 3.0-0.5 Mg/3 Ml) 3 ml NEB Q4HRRT PRN PRN Reason: Shortness of Breath Last Admin: 11/05/18 10:32 Dose: 3 ml Ceftriaxone Sodium (Rocephin) 2 gm IVPUSH Q24H MADIHA Last Admin: 11/08/18 16:40 Dose: 2 gm Cyanocobalamin (Vitamin B12) 500 mcg PO DAILY [facility] Last Admin: 11/09/18 08:14 Dose: 500 mcg Enoxaparin Sodium (Lovenox) 40 mg SUBCUT DAILY@1400 [facility] Folic Acid (Folic Acid) 1 mg PO DAILY [facility] Last Admin: 11/09/18 08:13 Dose: 1 mg Guaifenesin (Mucinex) 600 mg PO BID PRN PRN Reason: Congestion Last Admin: 11/08/18 17:17 Dose: 600 mg Melatonin (Melatonin) 3 mg PO BEDTIME PRN PRN Reason: Insomnia Last Admin: 11/08/18 20:31 Dose: 3 mg Moexipril HCl (Univasc) 30 mg PO DAILY [facility] Last Admin: 11/09/18 08:15 Dose: 30 mg Multivitamins/Minerals (Centrum) 1 tab PO DAILY [facility] Last Admin: 11/09/18 08:13 Dose: 1 tab Sodium Chloride (Saline Flush) 10 ml FLUSH Q8HR PRN PRN Reason: keep vein open Last Admin: 11/07/18 16:48 Dose: 10 ml Thiamine HCl (Vitamin B-1) 100 mg PO BEDTIME [facility] Last Admin: 11/08/18 20:31 Dose: 100 mg Umeclidinium/Vilanterol (Anoro Ellipta 62.5-25 Mcg) 62.5 mcg IH DAILY [facility] Last Admin: 11/09/18 08:58 Dose: 1 puff Discontinued Medications Enoxaparin Sodium (Lovenox) 40 mg SUBCUT Q24H [facility] Last Admin: 11/08/18 13:45 Dose: 40 mg Sodium Chloride (Normal Saline) 1,000 mls @ 999 mls/hr IV ONETIME ONE Stop: 11/04/18 13:21 Last Admin: 11/04/18 14:33 Dose: Not Given Sodium Chloride (Normal Saline) 1,000 mls @ 125 mls/hr IV ASDIRECTED [facility] Last Admin: 11/04/18 14:23 Dose: 125 mls/hr Sodium Chloride (Normal Saline) 1,000 mls @ 999 mls/hr IV ONETIME ONE Stop: 11/04/18 14:49 Last Admin: 11/04/18 14:23 Dose: 999 mls/hr Sodium Chloride (Normal Saline) 50 mls @ 2.5 mls/sec IV ASDIRECTED ONE Stop: 11/04/18 16:28 Last Admin: 11/04/18 19:58 Dose: Not Given Azithromycin 500 mg/ Sodium (Chloride) 250 mls @ 250 mls/hr IV Q24H [facility] Last Admin: 11/04/18 18:05 Dose: 250 mls/hr Potassium Chloride/Dextrose (D5w With 20 Meq Kcl) 1,000 mls @ 125 mls/hr IV ASDIRECTED [facility] Potassium Chloride/Sodium Chloride (Normal Saline With 20 Meq Kcl) 1,000 mls @ 125 mls/hr IV ASDIRECTED [facility] Last Admin: 11/06/18 02:57 Dose: 125 mls/hr Potassium Chloride/Dextrose/Sod Cl (D5 1/2 Ns W/ 20 Meq/L Kcl) 1,000 mls @ 65 mls/hr IV ASDIRECTED [facility] Last Admin: 11/07/18 03:05 Dose: 65 mls/hr Iopamidol (Isovue-370 (76%)) 75 ml IVPUSH ONETIME ONE Stop: 11/04/18 16:28 Last Admin: 11/04/18 19:58 Dose: Not Given Moexipril HCl (Univasc) 30 mg PO DAILY [facility] Last Admin: 11/05/18 11:57 Dose: 30 mg Non-Formulary Medication - Moexipril 15mg 2 each PO DAILY [facility] Last Admin: 11/06/18 08:51 Dose: 2 each Potassium Bicarb/Potassium Chloride (Potassium Chloride, Effervescent) 25 meq PO ONETIME ONE Stop: 11/05/18 12:01 Last Admin: 11/05/18 12:11 Dose: 25 meq Potassium Bicarbonate (Klor-Con Ef) 25 meq PO ONETIME ONE Stop: 11/05/18 16:46 Last Admin: 11/05/18 16:38 Dose: 25 meq - Exam Physical Findings Comments:: GENERAL: Elderly white female appearing older than stated age sitting in hospital bed in no acute distress. HEENT: Normocephalic, atraumatic. Conjunctiva clear. Nares patent without discharge. Mucous membranes moist, posterior pharynx unremarkable. NECK: Supple, no masses. CV: Regular rate and rhythm, no murmurs, rubs, or gallops. 2+ radial pulses. PULMONARY: Normal effort, diminished in based bilaterally, no wheezes, rales, or rhonchi. ABDOMEN: Positive bowel sounds, soft, nontender, nondistended. EXTREMITIES: 1+ edema of lower extremities to mid-cuevas, no cyanosis or clubbing. MUSCULOSKELETAL: Moves all extremities well. NEUROLOGICAL: No obvious deficits. DERMATOLOGIC: No rashes or suspicious lesions in exposed areas. PSYCHIATRIC: Alert, interactive, appropriate affect.
[2018-11-09] MEDS ORDERED: Enoxaparin 40 MG/0.4 ML Syringe SUBCUT SCH (14:00)
== END 2018-11-09 13:30 | disposition home or self-care (01) | DRG 872 ==
LOC: KA.MS 11:20 → OBSVTOIN 11-05 11:20
PROVIDERS: ADMIT Family Medicine; ATTEND Family Medicine
DX: A41.9 Sepsis, unspecified organism (principal); R05 Cough; R50.9 Fever, unspecified; R06.02 Shortness of breath; R60.0 Localized edema; R53.1 Weakness; R53.83 Other fatigue; R42 Dizziness and giddiness; N39.0 Urinary tract infection, site not specified; E46 Unspecified protein-calorie malnutrition; E87.1 Hypo-osmolality and hyponatremia; E86.0 Dehydration; I10 Essential (primary) hypertension; Z68.24 Body mass index [BMI] 24.0-24.9, adult; E87.6 Hypokalemia; D72.821 Monocytosis (symptomatic); I95.9 Hypotension, unspecified; J43.9 Emphysema, unspecified; R11.0 Nausea; R30.0 Dysuria; E86.1 Hypovolemia; F17.210 Nicotine dependence, cigarettes, uncomplicated
CPT/HCPCS: 36415 ×2; 36600; 71046; 71260; 80048; 80053; 81001; 83605; 83880; 84443; 84484; 85025 ×2; 86140; 87040 ×2; 87077 ×2; 87086; 87088; 87186 ×2; 93005; 94640; 96361; 96365; 96366; 96367; 96375; A9270; G0378 ×2; G0379; J0456; J0696; J3480 ×2; J7030 ×2; J7050 ×2; Q9967; 82803; J1650; J7040; J7620-GY

== ENCOUNTER 2018-12-22 07:23 | Day surgery (SDC) | payer MEDICARE, OTHER ==
[2018-12-22] MEDS ORDERED: Dexamethasone/Tobramycin 0.1-0.3% Ophth Susp 2.5 ML Bottle EYELF SCH (07:30)
[2018-12-22] MEDS ORDERED: Lactated Ringers 1,000 ML IV SCH (07:30)
[2018-12-22] MEDS ORDERED: Sodium Chloride 0.9% 10 ML Syringe FLUSH PRN (07:30)
[2018-12-22] MEDS: Phenylephrine 10% Ophth Soln 5 ML Bot EYELF SCH ×3 (07:54→08:20)
[2018-12-22] MEDS: Cyclopentolate 1% Opth Soln 2 ML Bottle EYELF SCH ×3 (08:00→08:26)
[2018-12-22] MEDS ORDERED: Water For Irrigation,Sterile 1,500 ML Container IRR ONE (09:33)
[2018-12-22] MEDS ORDERED: Balanced Salt Solution Ophth Irrig 15 ML Bottle EYELF ONE (09:33)
[2018-12-22] MEDS ORDERED: Carbachol 0.01% Intraocular 1.5 ML Vial EYELF ONE (09:36)
[2018-12-22] MEDS ORDERED: Balanced Salt Solution Plus Ophth Irrig 500 ML Bottle IOCULAR ONE (09:36)
[2018-12-22] MEDS ORDERED: EPINEPHrine 1 MG/ML SDV ONE (09:36)
[2018-12-22] MEDS ORDERED: Dexamethasone/Neomycin/Polymyxin B Ophth Oint 3.5 GM Tube EYELF ONE (09:36)
[2018-12-22] MEDS ORDERED: Hyaluronate Sodium 1% 0.85 ML Syringe IOCULAR ONE (09:37)
[2018-12-22] MEDS ORDERED: Lidocaine 1% 10 ML MDV INJECT ONE (09:37)
[2018-12-22] MEDS ORDERED: Lidocaine 2% with EPINEPHrine 1:100,000 20 ML MDV INJECT ONE (09:37)
[2018-12-22] MEDS ORDERED: Tetracaine HCl/PF 0.5% 4 ML Bottle EYEBOTH ONE (09:38)
[2018-12-22 10:00] VITALS: BP 140/54
--- NOTE | 2018-12-22 15:14 | OR ---
DATE OF SURGERY: 12/22/2018 SURGEON: Stas Duvall MD PREOPERATIVE DIAGNOSIS: Cataract, left eye. POSTOPERATIVE DIAGNOSIS: Cataract, left eye. OPERATION PERFORMED: Phacoemulsification with posterior chamber lens insertion, left eye. HISTORY: The patient presents at this time with increasing amount of difficulty seeing to drive and difficulty seeing photos. The vision for the left eye is 20/80. The left lens has a 3+ nuclear sclerosis, a 4+ posterior subcapsular cataract, and several vacuoles. 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 FINDINGS: The patient was taken to the operating room where appropriate anesthesia, sedation and monitoring were provided. A retrobulbar block was given on the left side. The eye was massaged and was found to be appropriately soft. The eye and eyelids were then prepped and draped in the usual sterile manner. A lid speculum was placed. A micro sharp blade was used to enter the anterior chamber inside the limbus inferior-temporally. Xylocaine was irrigated into the eye at this site. Healon was irrigated into the eye through this site. Then using a 2.85 mm corneal blade an entry was made into the anterior chamber just inside the limbus temporally. Healon was again irrigated into the eye. Then using a cystitome, the anterior capsulorrhexis was created. The lens nucleus was hydrodissected using a 27 gauge cannula and balanced salt solution. The phacoemulsification unit was introduced through the temporal site and the Maximo spatula through the inferior temporal site. In so doing, the lens nucleus was phacoemulsified. The cortical fragments of the lens were removed using the irrigation aspiration unit. The posterior capsule was polished. Healon was irrigated into the eye. The posterior chamber lens was inserted and rotated into position inside the capsular bag. The Healon was irrigated out of the eye. Miostat was irrigated into the eye and the pupil rounded nicely. A single interrupted 10-0 Nylon suture was placed through the temporal corneal incision site. Balanced salt solution was irrigated into the eye. The wound was tested and found to be tight. Maxitrol ointment was placed into the patient's left eye. The eyelids were closed and an eye patch and rodriguez shield were placed. The patient left the operating room in good condition. /[id number]/MODL
== END 2018-12-22 10:11 | disposition home or self-care (01) ==
LOC: KA.SDS 07:23
PROVIDERS: ATTEND Ophthalmology
DX: H26.9 Unspecified cataract (principal); I10 Essential (primary) hypertension; E87.1 Hypo-osmolality and hyponatremia; J96.11 Chronic respiratory failure with hypoxia; Z87.891 Personal history of nicotine dependence; Z79.52 Long term (current) use of systemic steroids; Z91.09 Other allergy status, other than to drugs and biological substances; Z79.899 Other long term (current) drug therapy
CPT/HCPCS: 66984; A9270; J0171; J2001; J7120; V2632; 00142

== ENCOUNTER 2019-01-26 07:28 | Day surgery (SDC) | payer MEDICARE, OTHER ==
[2019-01-26] MEDS ORDERED: Ofloxacin 0.3% Ophth Soln 5 ML Bottle EYERT SCH (07:30)
[2019-01-26] MEDS ORDERED: Lactated Ringers 1,000 ML IV SCH (07:30)
[2019-01-26] MEDS ORDERED: Sodium Chloride 0.9% 10 ML Syringe FLUSH PRN (07:30)
[2019-01-26] MEDS: Cyclopentolate 1% Opth Soln 2 ML Bottle EYERT SCH ×3 (07:46→08:10)
[2019-01-26] MEDS: Phenylephrine 10% Ophth Soln 5 ML Bot EYERT SCH ×3 (07:51→08:16)
[2019-01-26] MEDS ORDERED: Water For Irrigation,Sterile 1,500 ML Container IRR ONE (09:54)
[2019-01-26] MEDS ORDERED: Carbachol 0.01% Intraocular 1.5 ML Vial EYERT ONE (09:54)
[2019-01-26] MEDS ORDERED: Balanced Salt Solution Plus Ophth Irrig 500 ML Bottle IOCULAR ONE (09:54)
[2019-01-26] MEDS ORDERED: Balanced Salt Solution Ophth Irrig 15 ML Bottle EYERT ONE (09:54)
[2019-01-26] MEDS ORDERED: Dexamethasone/Neomycin/Polymyxin B Ophth Oint 3.5 GM Tube EYERT ONE (09:54)
[2019-01-26] MEDS ORDERED: Tetracaine HCl/PF 0.5% 4 ML Bottle EYEBOTH ONE (09:55)
[2019-01-26] MEDS ORDERED: Hyaluronate Sodium 1% 0.85 ML Syringe IOCULAR ONE (09:55)
[2019-01-26] MEDS ORDERED: Lidocaine 2% with EPINEPHrine 1:100,000 20 ML MDV INJECT ONE (09:55)
[2019-01-26] MEDS ORDERED: Lidocaine 1% 10 ML MDV INJECT ONE (09:55)
[2019-01-26] MEDS ORDERED: EPINEPHrine 1 MG/1 ML Amp ONE (09:57)
[2019-01-26 10:12] VITALS: BP 155/64; PULSE 95
--- NOTE | 2019-01-28 09:30 | OR ---
DATE OF SURGERY: 01/26/2019 SURGEON: Stas Duvall MD PREOPERATIVE DIAGNOSIS: Cataract, right eye. POSTOPERATIVE DIAGNOSIS: Cataract, right eye. OPERATION PERFORMED: Phacoemulsification with posterior chamber lens insertion, right eye. HISTORY: The patient presents at this time with an increasing amount of difficulty seeing to drive using the right eye and she also has difficulty seeing photographs. The right eye has a vision of 20/50. The right lens has a 3+ nuclear sclerosis with 2+ posterior subcapsular change and several vacuoles. This eye has a combined cataract and a cataract of aging. FINDINGS: The patient was taken to the operating room where appropriate anesthesia, sedation and monitoring were provided. A retrobulbar block was given on the right side. The eye was massaged and was found to be appropriately soft. The eye and eyelids were then prepped and draped in the usual sterile manner. A lid speculum was placed. A micro sharp blade was used to enter the anterior chamber inside the limbus superior-temporally. Xylocaine was irrigated into the eye at this site. Healon was irrigated into the eye through this site. Then using a 2.85 mm corneal blade an entry was made into the anterior chamber just inside the limbus temporally. Healon was again irrigated into the eye. Then using a cystitome, the anterior capsulorrhexis was created. The lens nucleus was hydrodissected using a 27 gauge cannula and balanced salt solution. The phacoemulsification unit was introduced through the temporal site and the Maximo spatula through the superior temporal site. In so doing, the lens nucleus was phacoemulsified. The cortical fragments of the lens were removed using the irrigation aspiration unit. The posterior capsule was polished. Healon was irrigated into the eye. The posterior chamber lens was inserted and rotated into position inside the capsular bag. The Healon was irrigated out of the eye. Miostat was irrigated into the eye and the pupil rounded nicely. A single interrupted 10-0 Nylon suture was placed through the temporal corneal incision site. Balanced salt solution was irrigated into the eye. The wound was tested and found to be tight. Maxitrol ointment was placed into the patient's right eye. The eyelids were closed and an eye patch and rodriguez shield were placed. The patient left the operating room in good condition. /[id number]/MODL
== END 2019-01-26 10:37 | disposition home or self-care (01) ==
LOC: KA.SDS 07:28
PROVIDERS: ATTEND Ophthalmology
DX: H25.811 Combined forms of age-related cataract, right eye (principal); I10 Essential (primary) hypertension; J44.9 Chronic obstructive pulmonary disease, unspecified; J96.11 Chronic respiratory failure with hypoxia; Z98.42 Cataract extraction status, left eye; Z87.891 Personal history of nicotine dependence; Z79.899 Other long term (current) drug therapy
CPT/HCPCS: 00142; 66984; A9270; J0171; J2001; J7120; V2632

== ENCOUNTER 2019-03-25 18:27 | Emergency (ER) | payer MEDICARE, OTHER ==
[2019-03-25] MEDS ORDERED: EPINEPHrine 1 MG/ML 30 ML MDV IVPUSH PRN (18:28)
[2019-03-25] MEDS: EPINEPHrine 1:10,000 1 MG/10 ML Syringe IVPUSH PRN ×3 (18:29→18:49)
[2019-03-25] MEDS ORDERED: Albuterol 0.083% 2.5 MG/3 ML Neb Soln ONE (18:37)
[2019-03-25] MEDS ORDERED: EPINEPHrine 1 MG/1 ML Amp SUBCUT ONE (18:40)
[2019-03-25] MEDS ORDERED: EPINEPHrine 1 MG in Dextrose 5% in Water 100 ML IV SCH ×2 (18:53)
[2019-03-25] MEDS ORDERED: Dextrose 5% in Water 250 ML IV SCH (18:53)
[2019-03-25] MEDS ORDERED: Sodium Chloride 0.9% 1,000 ML ONE (18:54)
[2019-03-25] MEDS ORDERED: Albuterol 0.083% 2.5 MG/3 ML Neb Soln INH ONE (18:57)
[2019-03-25] MEDS ORDERED: methylPREDNISolone Sodium Succinate 125 MG/2 ML SDV ONE (18:59)
[2019-03-25] MEDS ORDERED: methylPREDNISolone Sodium Succinate 125 MG/2 ML SDV IVPUSH ONE (19:00)
[2019-03-25] MEDS ORDERED: Sodium Chloride 0.9% 1,000 ML IV ONE (19:00)
--- NOTE | 2019-03-25 19:20 | CR ---
[id number] RAD/RAD Chest PA or AP 1V EXAM: RAD Chest PA or AP 1V INDICATION: UNRESPONSIVE COMPARISON: October 2018 DISCUSSION: Evaluation is limited by radiopaque medical writer projecting over the chest. Findings are within this limitation. Endotracheal tube in place. Tip is near the level of micaela. Tube should be retracted 30 mm for placement in the mid trachea. There is central vascular congestion. Otherwise, no radiographically evident acute cardiopulmonary findings. Findings are superimposed on changes of chronic obstructive pulmonary disease. IMPRESSION: Endotracheal tube has been placed, described above. Pulmonary vascular congestion and possible changes of pulmonary edema. Maurizio Garner MD 03/25/19 1839 Thank you for allowing us to participate in the care of your patient.
[2019-03-25 19:52] LABS: ANION GAP 20.6 mmol/L (5-15); CHLORIDE,CL 100 mmol/L (98-115); SODIUM,NA 139 mmol/L (136-145)
--- NOTE | 2019-03-25 21:05 | EDM.PDOC ---
ED HPI GENERAL MEDICAL PROBLEM - General Stated Complaint: CODE BLUE Time Seen by Provider: 03/25/19 18:27 Source of Information: Reports: EMS, Family History Limitations: Reports: Other (unresponsive) - History of Present Illness INITIAL COMMENTS - FREE TEXT/NARRATIVE: Patient brought to ER with CPR in progress via Moses and Dangelo Airway/bag. tells me that he and patient had met with some friends, had a drink or two and were on their way home. A few minutes after leaving pt said she was having trouble breathing. She has COPD and uses oxygen at 2 liters chronically. He stopped the car and they got out hoping the fresh air would help. He also turned her oxygen up to 4.5 liters. She wasn't feeling any better so she got in the back seat and lay down while he called 911 and drove until he met the ambulance. He says she wasn't having any chest pain, just the breathing difficulty. He isn't sure when she stopped breathing but they met the [place] ambulance who started CPR and placed a supraglottic airway and then met with the [place] [facility] ambulance who changed to a Dangelo Airway and continued CPR via Moses. On arrival here color was a little blue around the face but not bad. Anesthesia placed an ET tube and significant stomach distension was noted so an NG tube was also placed. Albuterol was also given. Her color improved nicely. After a few minutes spontaneous pulses were present and adequate blood pressure so Moses was stopped. Epinephrine had been given by EMS and also in ER. [facility] was consulted prior to patient arrival and kept detailed records for us. Patient had dilated pupils bilat on arrival and for several minutes then became smaller as the skin color improved. She squeezed our hands on request a couple of times. Blood pressure, pulses and oxygen sats were stable while we waited for the [facility] to arrive; this was a little delayed in leaving from [place]. - Related Data Allergies Allergy/AdvReac Type Severity Reaction Status Date / Time seasonal Allergy Unknown Cough Uncoded 01/26/19 08:09 Home Meds: Home Meds diphenhydrAMINE [Benadryl] 25 mg PO QID PRN 03/31/17 [History] Cyanocobalamin (Vitamin B12) [Vitamin B12] 500 mcg PO DAILY #30 tablet 04/03/17 [Rx] Moexipril [Univasc] 30 mg PO DAILY #60 tablet 04/03/17 [Rx] Albuterol [Ventolin HFA] 2 puff INH Q4H PRN 11/04/18 [History] FA/Lycopene/Lut/MV,Ca,Iron,Min [Centrum] 1 tab PO DAILY tablet 11/09/18 [Rx] Umeclidinium Brm/Vilanterol Tr [Anoro Ellipta 62.5-25 MCG] 62.5 mcg IH DAILY inhaler 11/09/18 [Rx] guaiFENesin [Mucinex] 600 mg PO BID PRN tab.er 11/09/18 [Rx] Albuterol/Ipratropium [DuoNeb 3.0-0.5 MG/3 ML] 3 ml NEB Q6HR PRN 12/16/18 [ History] Past Medical History - Past Health History Medical/Surgical History: Denies Medical/Surgical History HEENT History: Reports: None Cardiovascular History: Reports: Hypertension Respiratory History: Reports: Bronchitis, Recurrent Other Respiratory History: chronic hypoxemic respiratory failure Gastrointestinal History: Reports: Other (See Below) Other Gastrointestinal History: stomach ulcer Genitourinary History: Reports: Urinary Incontinence TRAVEL COTA History: Reports: Musculoskeletal History: Reports: Arthritis, Back Pain, Chronic, Other (See Below) Other Musculoskeletal History: septic arthritis Neurological History: Reports: None Psychiatric History: Reports: None Endocrine/Metabolic History: Reports: None Hematologic History: Reports: Blood Transfusion(s), Other (See Below) Other Hematologic History: GI bleed Immunologic History: Reports: None Oncologic (Cancer) History: Reports: None Dermatologic History: Reports: Cellulitis - Infectious Disease History Infectious Disease History: Reports: Chicken Pox, Influenza, Measles, Mumps - Past Surgical History Head Surgeries/Procedures: Reports: None HEENT Surgical History: Reports: Tonsillectomy Cardiovascular Surgical History: Reports: None Respiratory Surgical History: Reports: None GI Surgical History: Reports: Colonoscopy Female Surgical History: Reports: None Endocrine Surgical History: Reports: None Neurological Surgical History: Reports: None Musculoskeletal Surgical History: Reports: Arthroscopic Knee Oncologic Surgical History: Reports: None Dermatological Surgical History: Reports: None Social & Family History - Caffeine Use Caffeine Use: Reports: Coffee ED ROS GENERAL - Review of Systems Review Of Systems: Unable To Obtain ED EXAM, CPR - Physical Exam Exam: See Below Limited By: Unresponsive General Appearance: Obtunded Eye Exam: Bilateral Eye: Other (dilated initially then normal size but unresponsive) Ears: Normal External Exam Nose: Normal Inspection, No Blood Throat/Mouth: Normal Inspection, Normal Lips, Normal Oropharynx Head: Atraumatic, Normocephalic Respiratory Chest: Rhonchi (with bagged respirations but good air movement bilat ) Cardiovascular: Normal Peripheral Pulses (most of the time spontaneous but good pulses with CPR before ROSC) GI/Abdominal Exam: Other (distension but improved with NG tube placement) Extremities: Normal Capillary Refill, Other (occasional involuntary movements and a couple seemingly voluntary hand squeezes) Skin Exam: Warm, Dry, Intact, Normal Color, No Rash Course - Orders/Labs/Meds Labs: Laboratory Tests 03/25/19 03/25/19 03/25/19 Range/Units 18:45 18:45 18:45 WBC 7.65 (5.00-10.00) 10^3/uL RBC 3.54 L (3.80-5.50) 10^6/uL Hgb 12.2 D (12.0-16.0) g/dL Hct 38.7 (37.0-47.0) % MCV 109.3 H D (82.0-92.0) fL MCH 34.5 H (27.0-31.0) pg MCHC 31.5 L (32.0-36.0) g/dL RDW 12.5 (11.5-14.5) % Plt Count 244 D (150-400) 10^3/uL MPV 9.1 (7.4-10.4) fL Immature Gran % (Auto) [employer] Neut % (Auto) [employer] Lymph % (Auto) [employer] Operator [place] % (Auto) [employer] Eos % (Auto) [employer] Baso % (Auto) [employer] Operator Immature Gran # (Auto) [employer] Operator Neut # (Auto) [employer] Operator Lymph # (Auto) [employer] Operator [place] # (Auto) [employer] Lift [employer] Operator Eos # (Auto) [employer] Lift [employer] Operator Baso # (Auto) [employer] Lift [employer] Operator Add Manual Diff Yes Neutrophils % (Manual) 34 L (50-70) % Band Neutrophils % 1 L (4-12) % Lymphocytes % (Manual) 58 H (20-40) % Monocytes % (Manual) 2 (2-8) % Eosinophils % (Manual) 3 (1-3) % Metamyelocytes % 2 Absolute Neutrophils 2.60 Band Neutrophils # 0.08 Lymphocytes # (Manual) 4.44 Monocytes # (Manual) 0.15 Eosinophils # (Manual) 0.23 ESR 4 (0-20) mm/hr Sodium 139 (136-145) mmol/L Potassium 3.8 (3.3-5.3) mmol/L Chloride 100 (98-115) mmol/L Carbon Dioxide 22.2 D (21.0-32.0) mmol/L Anion Gap 20.6 H (5-15) mmol/L BUN 12 (6-25) mg/dL Creatinine 0.73 (0.51-1.17) mg/dL Est Cr Clr Drug Dosing TNP Estimated GFR (MDRD) > 60 mL/min Glucose 259 H (75 - 99) mg/dL Lactic Acid (0.4-2.0) mmol/L Calcium 8.7 (8.7-10.3) mg/dL Total Bilirubin 0.1 L (0.2-1.0) mg/dL AST 139 H (15-37) U/L ALT 135 H (12-78) U/L Alkaline Phosphatase 96 (46-116) IU/L Troponin I 0.10 H* (0.00-0.070) ng/mL Total Protein 6.0 L (6.4-8.2) g/dL Albumin 2.82 L (3.00-4.80) g/dL Ethyl Alcohol 15 H (NONE DETECTED) mg/dL 03/25/19 Range/Units 18:45 WBC (5.00-10.00) 10^3/uL RBC (3.80-5.50) 10^6/uL Hgb (12.0-16.0) g/dL Hct (37.0-47.0) % MCV (82.0-92.0) fL MCH (27.0-31.0) pg MCHC (32.0-36.0) g/dL RDW (11.5-14.5) % Plt Count (150-400) 10^3/uL MPV (7.4-10.4) fL Immature Gran % (Auto) Neut % (Auto) Lymph % (Auto) [place] % (Auto) Eos % (Auto) Baso % (Auto) Immature Gran # (Auto) Neut # (Auto) Lymph # (Auto) [place] # (Auto) Eos # (Auto) Baso # (Auto) Add Manual Diff Neutrophils % (Manual) (50-70) % Band Neutrophils % (4-12) % Lymphocytes % (Manual) (20-40) % Monocytes % (Manual) (2-8) % Eosinophils % (Manual) (1-3) % Metamyelocytes % Absolute Neutrophils Band Neutrophils # Lymphocytes # (Manual) Monocytes # (Manual) Eosinophils # (Manual) ESR (0-20) mm/hr Sodium (136-145) mmol/L Potassium (3.3-5.3) mmol/L Chloride (98-115) mmol/L Carbon Dioxide (21.0-32.0) mmol/L Anion Gap (5-15) mmol/L BUN (6-25) mg/dL Creatinine (0.51-1.17) mg/dL Est Cr Clr Drug Dosing Estimated GFR (MDRD) mL/min Glucose (75 - 99) mg/dL Lactic Acid 12.3 H (0.4-2.0) mmol/L Calcium (8.7-10.3) mg/dL Total Bilirubin (0.2-1.0) mg/dL AST (15-37) U/L ALT (12-78) U/L Alkaline Phosphatase (46-116) IU/L Troponin I (0.00-0.070) ng/mL Total Protein (6.4-8.2) g/dL Albumin (3.00-4.80) g/dL Ethyl Alcohol (NONE DETECTED) mg/dL Meds: Medications Discontinued Medications Generic Name Dose Route Start Last Admin Trade Name Vini PRGeorgiana Reason Stop Dose Admin Albuterol Confirm 03/25/19 18:37 Proventil Neb Soln Administered 03/25/19 18:38 Dose 2.5 mg .ROUTE .STK-MED ONE Sodium Chloride Confirm 03/25/19 18:54 Normal Saline Administered 03/25/19 18:55 Dose 1,000 mls @ as directed .ROUTE .STK-MED ONE Methylprednisolone Sodium Succinate Confirm 03/25/19 18:59 Solu-Medrol Administered 03/25/19 19:00 Dose 125 mg .ROUTE .STK-MED ONE - Re-Assessments/Exams Free Text/Narrative Re-Assessment/Exam: 03/25/19 21:10 Discussed findings and plan with family, who is in agreement. Discussed case with Dr. Rivera after [facility] contacted him. Patient relatively stable until [facility] arrived and transported patient to [facility]. Please refer to Reta report for additional details. 03/25/19 21:13 Labs were drawn 30+ minutes after CPR had been going so unclear cause of troponin elevation. Departure - Departure Time of Disposition: 20:35 Disposition: DC/Tfer to Acute Hospital 02 Condition: Poor Clinical Impression: Unresponsive, Respiratory arrest - Discharge Information Referrals: Perfecto Salinas, [employer] [Primary Care Provider] -
== END 2019-03-25 20:35 ==
LOC: KA.ED 18:27
DX: R09.2 Respiratory arrest (principal); R40.20 Unspecified coma; I10 Essential (primary) hypertension; Z91.09 Other allergy status, other than to drugs and biological substances; Z79.899 Other long term (current) drug therapy; Z79.51 Long term (current) use of inhaled steroids; Z98.890 Other specified postprocedural states
CPT/HCPCS: 31500; 36415; 71045; 80053; 83605; 84484; 85025; 85651; 92950; 96365; 96366; 96375; 96376; 99291; 99292; G0480; J0171; J2930; J7030; J7050; J7060; Q3014; J7613-GY